=== PATIENT | male | born 1955 | race African-American/Black ===

== ENCOUNTER 2020-02-13 20:07 | Inpatient (IN) | payer MEDICARE, MEDICAID ==
--- NOTE | 2020-02-13 21:31 | ULT ---
GALLBLADDER ULTRASOUND: 02/13/20 HISTORY: Transaminitis. Elevated liver function tests. Right upper quadrant pain. Images of the gallbladder show numerous echogenic gallstones. Gallbladder wall is mildly thickened. T here is a positive Gordon's sign described. The liver is echogenic indicating fatty infiltration. The common bile duct is not imaged. No evidence of intrahepatic ductal dilatation. Pancreas is partially imaged. Pancreatic duct is mildly prominent. The right kidney shows numerous cystic lesions measuring up to 5 cm. IMPRESSION: 1. Cholelithiasis with mildly thickened gallbladder wall. Common duct is not identified; however , the pancreatic duct is mildly dilated and a common duct stone should be excluded. Positive Gordon's sign is described. 2. Fatty infiltration of the liver. 3. Numerous right renal cysts. POS: AGW
[2020-02-13] MEDS ORDERED: Lorazepam 1 MG TAB ONE (21:51)
[2020-02-13] MEDS ORDERED: Acetaminophen 325 MG TAB PO PRN (22:55)
[2020-02-13] MEDS ORDERED: NS 0.9% w/ 20 MEQ KCL 1,000 ML/1,000 ML BAG IV SCH (23:00)
[2020-02-13] MEDS ORDERED: cefTRIAXone\\ROCEPHIN 1 GM in Sodium Chloride 0.9% 100 ML IVPB SCH (23:00)
[2020-02-13] MEDS ORDERED: HYDROcodone/Acetaminophen 5/325 mg Tablet PO PRN (23:02)
[2020-02-13] MEDS ORDERED: Ondansetron PF 4 MG/2 ML Vial IVP PRN (23:03)
[2020-02-13] MEDS ORDERED: MEROPENEM 1 GM/50 ML 1 GM in Premix Bag 1 BAG IVPB SCH (23:15)
[2020-02-13] MEDS ORDERED: Lorazepam 2 MG/ML VIAL ONE (23:40)
--- NOTE | 2020-02-14 00:06 | PDOC.EVN ---
Event Note - Event Note Event Note: 64 YOM w.. mental retardation, type 2 DM, and HTN presented with cholelithiasis Type 2 DM gen sux evaluated him and recommended GI eval. consulted GI. pl call them in am.
[2020-02-14 00:15] LABS: #Lymphocytes 1.9 thou/uL (1.20-3.40); #Monocytes 0.5 thou/uL (0.11-0.59); #Neutrophils 5.3 thou/uL (1.40-6.50); %Basophils 0.5 % (0.0-1.0); %Eosinophils 0.4 % (0.0-10.0); %Lymphocytes 24.1 % (21.0-51.0); %Monocytes 6.9 % (0.0-10.0); %Neutrophils 68.1 % (42.0-75.0); Hemoglobin 12.5 g/dL (14.0-18.0); Mean Corpuscular HGB CONC 31.5 g/dL (32.0-36.0); Mean Corpuscular Hemoglobin 28.9 pg (27.0-31.0); Mean Corpuscular Volume 91.6 fL (78.0-98.0); Mean Platelet Volume 8.3 fL (7.4-10.4); Platelet Count 361 thou/uL (130-400); RBC Distribution Width 14.6 % (11.5-14.5); Red Blood Cell (RBC) Count 4.35 mill/uL (4.70-6.10); White Blood Cell (WBC) Count 7.8 thou/uL (4.8-10.8)
[2020-02-14 00:28] LABS: ALT (SGPT) 527 U/L (8-55); AST (SGOT) 504 U/L (5-34); Alkaline Phosphatase 229 U/L (40-110); Anion Gap 15 mmol/L (10-20); BUN (Urea Nitrogen) 6 mg/dL (8.4-25.7); Bilirubin, Total 1.5 mg/dL (0.2-1.2); Calc. Creatinine Clearance 0 mL/min (70-130); Calcium 9.4 mg/dL (7.8-10.44); Carbon Dioxide 26 mmol/L (23-31); Chloride 104 mmol/L (98-107); Estimated GFR-MDRD Greater than 90; Globulin 4.1 g/dL (2.4-3.5); Glucose 128 mg/dL (80-115); Potassium 3.5 mmol/L (3.5-5.1); Protein, Total 8.1 g/dL (5.8-8.1); Sodium 141 mmol/L (136-145)
[2020-02-14 00:40] VITALS: BMI 40.4
--- NOTE | 2020-02-14 01:04 | HP ---
CHIEF COMPLAINT: Abdominal discomfort and emesis. HISTORY OF PRESENT ILLNESS: A 64-year-old male, mentally retarded, lives with his mother, presented with one-day duration of headache and emesis x2 episodes. It happened last night and this morning. The patient was not complaining of abdominal pain, but expressed some discomfort. Information gathered from his mother. She does not know when he had the last bowel movement, but no noticeable diarrhea. The patient did not have any fever or cough. The patient has no previous history of abdominal surgery. He is transferred from [facility] after receiving IV fluids , 2 mg Ativan, and a gram of ceftriaxone. His LFTs were quite abnormal with AST of 767, ALT 637, and alkaline phosphatase 245. General Surgery has been consulted by the ER physician. It appeared that they recommended to consult trust operations assistant. The patient will be admitted for further workup. REVIEW OF SYSTEMS: Complete review of systems not obtained directly from the patient, but mother provided the above information. He did not have any fever. No productive cough. No headache, blurriness, or tingling or numbness in his extremities. He ambulates without any assistive devices. PAST MEDICAL HISTORY: Type 2 diabetes mellitus and hypertension. PAST SURGICAL HISTORY: Tooth extraction. HOME MEDICATIONS: 1. Atenolol 100 mg daily. 2. Lisinopril 20 mg daily. 3. Amlodipine 10 mg daily. 4. Hydrochlorothiazide. SOCIAL HISTORY: The patient lives with his mother. He chews cigars, but no alcohol use. FAMILY HISTORY: Significant for hypertension and diabetes in his mother. PHYSICAL EXAMINATION: VITAL SIGNS: He is afebrile. Normotensive. He is saturating above 90% in the room air. GENERAL: The patient is nontoxic looking. He is on the obese side. HEENT: Pupils are equal, round, and reactive to light. Anicteric. Mucous membranes moist. CARDIOVASCULAR: Regular rate and rhythm without murmurs, rubs, or gallops. LUNGS: Clear to auscultation bilaterally without wheezing, rales, or rhonchi. ABDOMEN: Soft, did not appreciate any rigidity or guarding. Bowel sounds positive. It is protuberant due to his body habitus. EXTREMITIES: Without pitting edema or rash. NEUROLOGICAL: No focal deficits appreciated. LABORATORY DATA: Again significant for lipase of 194, alkaline phosphatase 245 , AST 767, and ALT 637. IMAGING DATA: Ultrasound showed cholelithiasis, but common bile duct is not visualized. IMPRESSION AND PLAN: A 64-year-old male with a history of mental retardation, diabetes mellitus, and hypertension, presenting with, 1. Cholelithiasis. 2. Transaminitis elevation along with alkaline phosphatase. Acute pancreatitis probably related to cholelithiasis. 3. Type 2 diabetes mellitus. 4. Hypertension. 5. Obesity. General Surgery has been consulted by the ER physician. I placed a formal consult for trust operations assistant, as this is nonemergent, for tonight. Please make sure we call the GI in the morning. I am repeating the labs. Currently, continue with IV fluids, keep him n.p.o., pain control, as well as antiemetics. The patient is diabetic. I do not see any home hypoglycemic medications. So, for now, continue with normal saline and check his blood glucose. Will initiate the sliding scale insulin. Hypertension - continue with atenolol and lisinopril. DVT prophylaxis - scds Full code. Follow up with blood cultures and empiric antibiotic of Zosyn to cover for abdominal pathogens. Job ID: [id number] [facility]ENTER[facility]indy
[2020-02-14] MEDS: Piperacillin/Tazobactam 3.375 GM in Sodium Chloride 0.9% 100 ML IVPB SCH ×3 (01:22→17:22)
[2020-02-14] MEDS ORDERED: cloNIDine 0.1 MG TAB PO SCH (02:00)
[2020-02-14 04:57] LABS: Bacteria/HPF None Seen HPF (None Seen); Bilirubin 1+ (Negative); Blood, Urine Negative (Negative); Clarity Clear (Clear); Glucose, Urine (Dipstick) Normal (Negative); Leukocyte Negative Leu/uL (Negative); Nitrite Negative (Negative); Protein, Urine (Dipstick) 50 mg/dL (Neg-Trace); RBC/HPF 0-3 HPF (0-3); Squamous Epithelial 0-3 HPF (0-3); Urobilinogen 3 mg/dL (Less than 2); WBC/HPF 0-3 HPF (0-3)
[2020-02-14 05:08] LABS: Urine Culture Reflex No No
[2020-02-14] MEDS ORDERED: Dextrose 5% in Water 1,000 ML IV PRN ×2 (05:24→08:50)
[2020-02-14] MEDS ORDERED: HumaLOG 300 UNITS/3 ML VIAL SC PRN (05:24)
[2020-02-14] MEDS ORDERED: Dextrose 50% Abboject 50 ML SYRINGE SLOW IVP PRN ×2 (05:24→08:50)
[2020-02-14 06:32] LABS: PTT 29.2 SEC (22.9-36.1); Prothrombin Time 12.8 SEC (12.0-14.7)
[2020-02-14] MEDS ORDERED: Labetalol HCl 100 MG/20 ML VIAL SLOW IVP PRN (07:47)
[2020-02-14] MEDS ORDERED: hydrALAZINE 20 MG/ML VIAL SLOW IVP PRN ×2 (07:47→15:00)
[2020-02-14 07:55] LABS: ALT (SGPT) 475 U/L (8-55); AST (SGOT) 379 U/L (5-34); Albumin 3.9 g/dL (3.4-4.8); Alkaline Phosphatase 219 U/L (40-110); Anion Gap 15 mmol/L (10-20); BUN (Urea Nitrogen) 6 mg/dL (8.4-25.7); Bilirubin, Total 1.3 mg/dL (0.2-1.2); Calc. Creatinine Clearance 140 mL/min (70-130); Calcium 9.3 mg/dL (7.8-10.44); Carbon Dioxide 26 mmol/L (23-31); Chloride 104 mmol/L (98-107); Estimated GFR-MDRD Greater than 90; Globulin 4.1 g/dL (2.4-3.5); Glucose 108 mg/dL (80-115); Lipase 21 U/L (8-78); Potassium 3.6 mmol/L (3.5-5.1); Sodium 141 mmol/L (136-145)
[2020-02-14] MEDS ORDERED: Insulin Regular 300 UNITS/3 ML VIAL SC PRN (08:50)
[2020-02-14] MEDS: NS 0.9% w/ 20 MEQ KCL 1,000 ML/1,000 ML BAG IV SCH ×2 (09:04→17:53)
[2020-02-14] MEDS: Lisinopril 20 MG TAB PO SCH (09:16)
[2020-02-14] MEDS: Amlodipine 10 MG TAB PO SCH (09:16)
--- NOTE | 2020-02-14 09:41 | PDOC.HOSPP ---
- Subjective Encounter Date: 02/14/20 Encounter Time: 09:39 Subjective: Mr. Black was seen today in follow-up of abdominal pain and elevated LFT's. He notes a " little headache " . He denies any chest pain or shortness of breath. His mother is at bedside, and tells me he does not have any known heart disease. - Objective Vital Signs & Weight: Vital Signs (12 hours) Temp Pulse Resp BP BP Pulse Ox 02/14/20 09:17 95 180/112 H 02/14/20 09:16 95 180/112 H 02/14/20 07:27 98.0 F 95 18 180/112 H 92 L 02/14/20 04:51 97.7 F 100 16 163/97 H 93 L 02/14/20 02:16 162/89 H 02/14/20 01:52 94 L 02/14/20 00:40 98.6 F 100 18 180/118 H 94 L Weight Weight 258 lb Result Diagrams: 02/13/20 23:07 02/14/20 06:18 Hospitalist ROS - Medication Medications: Active Medications Generic Name Dose Route Start Last Admin Trade Name Freq PRN Reason Stop Dose Admin Amlodipine Besylate 10 mg 02/14/20 09:00 02/14/20 09:16 Norvasc PO Not Given DAILY ROBERTO Hydralazine HCl 10 mg 02/14/20 07:47 02/14/20 09:17 Apresoline SLOW IVP 10 mg Q4H PRN Administration SBP > 180 and HR < 70 Piperacillin Sod/Tazobactam 100 mls @ 200 mls/hr 02/14/20 00:15 02/14/20 09: 03 Sod 3.375 gm/ Sodium Chloride IVPB 100 mls Q8H ROBERTO Administration Potassium Chloride/Sodium Chloride 1,000 ml in 1,000 mls @ 125 mls/hr 08:45 02/14/20 09:04 Ns 0.9% W/ 20 Meq Kcl IV Not Given .Q8H ROBERTO Lisinopril 20 mg 02/14/20 09:00 02/14/20 09:16 Zestril PO Not Given DAILY ROBERTO Sodium Chloride 10 ml 02/14/20 09:00 02/14/20 09:05 Flush - Normal Saline IVF Not Given Q12HR ROBERTO - Exam General Appearance: NAD General - other findings: Blood pressure on re-check manually was 186/100 Eye: PERRL Heart: RRR, no murmur, no gallops, no rubs, normal peripheral pulses Respiratory: CTAB, no wheezes, no rales, no ronchi, normal chest expansion, no tachypnea, normal percussion Gastrointestinal: soft, non-tender, non-distended, normal bowel sounds, no palpable masses, no hepatomegaly, no splenomegaly Extremities: no cyanosis, no clubbing, no edema Hosp A/P (1) Acute acalculous cholecystitis Code(s): K81.0 - ACUTE CHOLECYSTITIS Status: Acute (2) Abdominal pain Code(s): R10.9 - UNSPECIFIED ABDOMINAL PAIN Status: Acute (3) Elevated liver function tests Code(s): R79.89 - OTHER SPECIFIED ABNORMAL FINDINGS OF BLOOD CHEMISTRY Status : Acute (4) Hypertension Code(s): I10 - ESSENTIAL (PRIMARY) HYPERTENSION Status: Chronic (5) Obesity, morbid, BMI 40.0-49.9 Code(s): E66.01 - MORBID (SEVERE) OBESITY DUE TO EXCESS CALORIES Status: Chronic (6) Diabetes mellitus type 2 in obese Code(s): E11.69 - TYPE 2 DIABETES MELLITUS WITH OTHER SPECIFIED COMPLICATION; E66.9 - OBESITY, UNSPECIFIED Status: Chronic - Plan * Abdominal pain and Nausea- likely due to acute acalculous cholecystitis, with mild pancreatitis * MRI has been ordered * Surgery and GI has been consulted * Continue empiric antibiotics * HTN- blood pressure is elevated- will add PRN medications including Clonidine with sips of water * DM- continue SSI
[2020-02-14] MEDS ORDERED: cloNIDine 0.1 MG TAB PO PRN (09:48)
--- NOTE | 2020-02-14 10:53 | CON ---
DATE OF CONSULTATION: 02/14/2020 CHIEF COMPLAINT: Abdominal pain, cholelithiasis. HISTORY OF PRESENT ILLNESS: The patient is a 64-year-old mentally-retarded black male. He lives with his mother in [place]. Yesterday, he developed abdominal pain with some episodes of vomiting. He was seen at the [facility]. Laboratory studies at that time revealed abnormal liver function tests. His bilirubin was initially elevated at 2.6, although when checked later in the evening, they dropped down to 1.5. His AST and ALT were both elevated in the 300 to 400 range and his alkaline phosphatase was elevated. A gallbladder ultrasound was subsequently obtained here at [facility] and this revealed cholelithiasis with possible dilated pancreatic duct and suspicion of possible common bile duct stone. The patient was admitted to the Hospitalist Service and I am seeing the patient in consult the following morning. PAST MEDICAL HISTORY: Significant for hypertension, type 2 diabetes mellitus as well as gout. PAST SURGICAL HISTORY: Dental extraction. MEDICATIONS: 1. Metformin. 2. Atenolol. 3. Lisinopril. 4. Amlodipine. 5. Hydrochlorothiazide. 6. Diazepam as needed. ALLERGIES: NO KNOWN DRUG ALLERGIES. PERSONAL AND SOCIAL HISTORY: The patient lives with his mother and she is present at bedside currently. He chews on cigar, but does not smoke. He does not work and never has worked. REVIEW OF SYSTEMS: Otherwise, unremarkable. FAMILY HISTORY: Noncontributory. PHYSICAL EXAMINATION: VITAL SIGNS: Temperature is 98.0, pulse 95, and blood pressure 180/112. GENERAL: He is a well-developed, well-nourished, obese black male. He is about 5 feet and 7 inches tall and weighs over 250 pounds. He is alert and pleasant. He is of limited mental capacity, but he is still verbally interactive. HEAD, EYES, EARS, NOSE, AND THROAT: Unremarkable. NECK: Supple. LUNGS: Clear to auscultation. CARDIAC: Regular rate and rhythm. ABDOMEN: Obese, but soft. Bowel sounds are present and normoactive. EXTREMITIES: Unremarkable. LABORATORY DATA: As mentioned, his bilirubin was elevated yesterday at 2.6, but has dropped down to 1.3 this morning. All of his liver function tests have dropped overnight. Additionally, his lipase was elevated at 194 yesterday and this has dropped down to 21 this morning. ASSESSMENT AND PLAN: The patient with cholelithiasis. I suspect that he did have a gallstone within the common bile duct, but this appears to have likely passed. At this point, I do not think he requires a preoperative endoscopic retrograde cholangiopancreatography. I would recommend a laparoscopic cholecystectomy with a cholangiogram. I have discussed this operation with the patient and his mother. She understands and agrees to proceed. Although, the patient tells me he does not want surgery. He is afraid that he will have pain. Although, I explained to him, with his limited mental capacity, I am not certain he understands entirely. Surgery has been scheduled for this afternoon. Job ID: [id number]
[2020-02-14] MEDS ORDERED: Metoprolol Tartrate 5 MG/5 ML VIAL ONE (11:20)
[2020-02-14] MEDS ORDERED: Lidocaine 1% PF 5 ML VIAL ONE (11:20)
[2020-02-14] MEDS ORDERED: Ondansetron PF 4 MG/2 ML Vial ONE (11:20)
[2020-02-14] MEDS ORDERED: Succinylcholine Chloride 20 MG/ML 10 ml SYRINGE FS ONE (11:20)
[2020-02-14] MEDS ORDERED: Metoclopramide HCl 10 MG/2 ML VIAL ONE (11:20)
[2020-02-14] MEDS ORDERED: PROPOFOL 200 MG/20 ML VIAL ONE (11:20)
[2020-02-14] MEDS ORDERED: Ketorolac Tromethamine 30 MG/ML VIAL ONE (11:20)
[2020-02-14] MEDS ORDERED: Esmolol 100 MG/10 ML VIAL ONE (11:20)
[2020-02-14] MEDS ORDERED: Rocuronium Bromide 10 MG/ML (10ML VIAL) ONE (11:20)
[2020-02-14] MEDS ORDERED: Bupivacaine 0.25% HCL 30 ML VIAL ONE (11:40)
[2020-02-14] MEDS ORDERED: Iothalamate Meglumine 60% 30 ML VIAL FS ONE (11:40)
[2020-02-14] MEDS ORDERED: EPINEPHrine 1 MG/ML AMP ONE (11:40)
[2020-02-14] MEDS ORDERED: Fentanyl 100 MCG/2 ML VIAL ONE (12:03)
[2020-02-14] MEDS ORDERED: Famotidine/PF 20 mg/2ml Vial ONE (12:04)
[2020-02-14] MEDS ORDERED: SUGAMMADEX SODIUM 500 MG/5 ML VIAL ONE (12:04)
[2020-02-14] MEDS ORDERED: hydrALAZINE 20 MG/ML VIAL ONE (13:04)
[2020-02-14] MEDS ORDERED: Ondansetron HCl/PF 4 MG/2 ML Vial IVP PRN (14:35)
[2020-02-14] MEDS ORDERED: Promethazine HCl 25 MG/ML VIAL SLOW IVP PRN (14:35)
[2020-02-14] MEDS ORDERED: Promethazine HCl 25 MG/ML VIAL IM PRN (14:35)
--- NOTE | 2020-02-14 16:30 | RAD ---
INTRAOPERATIVE CHOLANGIOGRAM; 02/14/20 HISTORY: Cholelithiasis. EXPOSURE: 9.43 mGy. 36 seconds. FINDINGS: Three intraprocedural fluoroscopic images demonstrate cannulation of the cystic duct. Contrast opacif ies a normal caliber intra and extrahepatic biliary system. No persistent filling defect. Contrast do es opacify the duodenum. IMPRESSION: No evidence of high grade common bile duct obstruction. POS: PPP
[2020-02-14] MEDS ORDERED: Morphine 2 MG/ML SYRINGE SLOW IVP PRN (18:13)
[2020-02-14] MEDS ORDERED: Morphine 4 MG/ML VIAL SLOW IVP PRN (18:13)
[2020-02-14] MEDS: Atenolol 50 MG TAB PO SCH (20:37)
--- NOTE | 2020-02-14 23:31 | OP ---
DATE OF PROCEDURE: 02/14/2020 PREOPERATIVE DIAGNOSES: Cholelithiasis, possible choledocholithiasis, cholecystitis. POSTOPERATIVE DIAGNOSES: [id number] cholecystitis, no evidence of choledocholithiasis. PROCEDURE PERFORMED: Laparoscopic cholecystectomy, (very difficult, requiring 2 hours), intraoperative cholangiogram, placement of intraabdominal drain. ANESTHESIA: General endotracheal. INDICATIONS FOR PROCEDURE: The patient is a 64-year-old morbidly obese black male. He presented to the hospital for evaluation of abdominal pain with nausea and vomiting. Ultrasound revealed evidence of cholelithiasis and cholecystitis. There was question regarding findings of choledocholithiasis and the patient had elevated liver function tests. He is therefore taken to the operating room at this time for laparoscopic cholecystectomy with cholangiogram. DESCRIPTION OF OPERATION: Informed consent was obtained from patient's mother. He is taken to the operating room, where general endotracheal anesthesia obtained with patient in the supine position. Abdomen was prepped with ChloraPrep and draped in sterile fashion. Local anesthetic was infiltrated using 0.25% Marcaine with epinephrine. A 5 mm right upper quadrant incision was created through which a Veress needle was passed into the peritoneal cavity. Pneumoperitoneum was established using carbon dioxide up to pressure of 15 mmHg. A 5 mm trocar port was passed through the same incision. Laparoscopic camera was passed through this port. Under direct vision, I placed 3 additional ports, using an 11 mm supraumbilical port and 2 additional 5 mm right upper quadrant ports. Attention was turned to the gallbladder. This was severely inflamed, it was encased with omentum. The omentum was bluntly stripped away in order to visualize the entire gallbladder. The gallbladder was too inflamed to be able to grasp. I therefore aspirated the contents with an aspiration needle. I was then able to grasp the gallbladder and retracted in cephalad direction. It was still very difficult to mobilize any of the gallbladder because of this severity of the induration and inflammation. I carefully began dissection at the apex of the gallbladder. The tissue in all areas was very thickened and inflamed. I was able to identify the cystic artery, lymph node and dissected this away, which revealed the underlying cystic artery. This was divided between clips leaving two on the side to remain within the abdomen. I attempted to dissect in order to find the cystic duct, but found this very dense and unable to identify anatomy appropriately. I therefore began to mobilize the left and right lateral aspects of the gallbladder and even the fundus of the gallbladder away from the liver in order to attempt to gain mobility. With time and persistent careful dissection, I was able to identify the cystic duct. All structures around this were densely inflamed. I was able to obtain a length of it eventually that I was able to proceed with a cholangiogram. Cholangiogram was obtained revealing no evidence of filling defect within the common bile duct. The contrast emptied easily into the duodenum. There was; however, an area that appeared to be somewhat narrowed or stenotic near the area of the apex of the gallbladder. This was clearly not obstructive as the common hepatic duct proximal to this was not dilated. I felt that it was likely that this narrowed area was secondary to the severity of inflammation from the gallbladder. The cholangiocath was removed. The duct was clipped, but due to the inflammation, it was not close to be inadequate. I therefore placed a PDS Endoloop on the cystic duct stump as well. I dissected the remainder of the gallbladder out of the gallbladder fossa of the liver, placed in a specimen retrieval sac, and removed it through the supraumbilical port. The fascia was closed with 0 Vicryl suture using a GraNee needle. The right upper quadrant was irrigated and all irrigant was aspirated. There was no evidence of any bleeding or bile leak. A 19-Kosovan round fluted drain was placed in the right upper quadrant, brought out through the inferior incision, where it was secured with a 3-0 nylon suture. The remaining ports and instruments were removed under direct vision. Pneumoperitoneum was carefully evacuated. 0.25% Marcaine with epinephrine was infiltrated each port site. Skin edges approximated with 4-0 Monocryl subcuticular suture and Dermabond. There were no complications. It was just a very difficult operation, but this had been performed without substantial blood loss. The patient tolerated the procedure well and was taken to recovery room in stable condition. Job ID: [id number]
[2020-02-15] MEDS: NS 0.9% w/ 20 MEQ KCL 1,000 ML/1,000 ML BAG IV SCH ×2 (00:14→08:51)
[2020-02-15] MEDS: Piperacillin/Tazobactam 3.375 GM in Sodium Chloride 0.9% 100 ML IVPB SCH ×2 (00:14→08:51)
[2020-02-15 06:23] LABS: ALT (SGPT) 329 U/L (8-55); AST (SGOT) 186 U/L (5-34); Albumin 3.7 g/dL (3.4-4.8); Alkaline Phosphatase 178 U/L (40-110); Anion Gap 16 mmol/L (10-20); BUN (Urea Nitrogen) 7 mg/dL (8.4-25.7); Bilirubin, Total 0.8 mg/dL (0.2-1.2); Calc. Creatinine Clearance 128 mL/min (70-130); Calcium 8.8 mg/dL (7.8-10.44); Carbon Dioxide 21 mmol/L (23-31); Chloride 110 mmol/L (98-107); Estimated GFR-MDRD Greater than 90; Globulin 3.8 g/dL (2.4-3.5); Glucose 109 mg/dL (80-115); Protein, Total 7.5 g/dL (5.8-8.1); Sodium 143 mmol/L (136-145)
[2020-02-15 07:05] LABS: Hemoglobin 12.6 g/dL (14.0-18.0); Lymphocytes 18 % (21-51); MDiff Complete? YES; Mean Corpuscular HGB CONC 32.6 g/dL (32.0-36.0); Mean Corpuscular Hemoglobin 28.9 pg (27.0-31.0); Mean Corpuscular Volume 88.7 fL (78.0-98.0); Mean Platelet Volume 8.5 fL (7.4-10.4); Monocytes 10 % (0-10); Neutrophil 71 % (42-75); Platelet Clumps SLIGHT; Platelet Count 306 thou/uL (130-400); Platelet Morphology Comment Appears Adequate; RBC Distribution Width 14.7 % (11.5-14.5); Red Blood Cell (RBC) Count 4.36 mill/uL (4.70-6.10); Vacuoles SLIGHT; White Blood Cell (WBC) Count 10.5 thou/uL (4.8-10.8)
[2020-02-15] MEDS: Amlodipine 10 MG TAB PO SCH (08:51)
[2020-02-15] MEDS: cloNIDine 0.1 MG TAB PO SCH ×2 (08:53→20:31)
[2020-02-15] MEDS: Enoxaparin Sodium 40 MG/0.4 ML SYRINGE SC SCH (08:54)
[2020-02-15] MEDS: Lisinopril 20 MG TAB PO SCH (08:55)
[2020-02-15] MEDS: Bisoprolol Fumarate/HCTZ 5 mg/6.25 mg Tablet PO SCH (09:30)
--- NOTE | 2020-02-15 11:42 | PDOC.HOSPP ---
- Subjective Encounter Date: 02/15/20 Encounter Time: 10:45 Subjective: pt up in bed wants to go to the bathroom. Assisted him with nursing to the bathroom. Pt ambulated well. - Objective Vital Signs & Weight: Vital Signs (12 hours) Temp Pulse Resp BP BP Pulse Ox 02/15/20 09:44 169/102 H 02/15/20 08:55 200/130 H 02/15/20 08:53 200/130 H 02/15/20 08:51 79 200/130 H 02/15/20 08:09 98.0 F 79 20 191/112 H 96 02/15/20 08:00 96 02/15/20 05:22 98.1 F 81 18 169/112 H 93 L 02/15/20 00:26 98.1 F 89 17 170/107 H 94 L Weight Weight 258 lb I&O: 02/14/20 02/15/20 02/16/20 06:59 06:59 06:59 Intake Total 1200 Output Total 225 1000 Balance -225 200 Result Diagrams: 02/15/20 06:35 02/15/20 05:23 Additional Labs: Accuchecks 02/15/20 02/15/20 02/14/20 06:09 00:39 20:32 POC Glucose 109 112 H 110 02/14/20 16:40 POC Glucose 142 H Hospitalist ROS - Review of Systems Cardiovascular: denies: chest pain, palpitations, orthopnea, paroxysmal noc. dyspnea, edema, light headedness, other Gastrointestinal: denies: nausea, vomiting, abdominal pain, diarrhea, constipation, melena, hematochezia, other - Medication Medications: Active Medications Generic Name Dose Route Start Last Admin Trade Name Freq PRN Reason Stop Dose Admin Acetaminophen 650 mg 02/13/20 22:55 02/14/20 20:37 Tylenol PO 650 mg Q4H PRN Administration Headache/Fever/Mild Pain (1-3) Amlodipine Besylate 10 mg 02/14/20 09:00 02/15/20 08:51 Norvasc PO 10 mg DAILY ROBERTO Administration Atenolol 100 mg 02/14/20 21:00 02/14/20 20:37 Tenormin PO 100 mg HS ROBERTO Administration Bisoprolol Fumarate/HCTZ 1 tab 02/15/20 09:00 05/02/20 09:30 Ziac 5-6.25 PO 1 tab DAILY ROBERTO Administration Clonidine 0.1 mg 02/15/20 09:00 02/15/20 08:53 Catapres PO 0.1 mg BID ROBERTO Administration Enoxaparin Sodium 40 mg 02/15/20 09:00 02/15/20 08:54 Lovenox SC 40 mg 0900 ROBERTO Administration Hydralazine HCl 10 mg 02/14/20 07:47 02/14/20 09:17 Apresoline SLOW IVP 10 mg Q4H PRN Administration SBP > 180 and HR < 70 Piperacillin Sod/Tazobactam 100 mls @ 200 mls/hr 02/14/20 00:15 02/15/20 08: 51 Sod 3.375 gm/ Sodium Chloride IVPB 100 mls Q8H ROBERTO Administration Potassium Chloride/Sodium Chloride 1,000 ml in 1,000 mls @ 125 mls/hr 08:45 02/15/20 08:51 Ns 0.9% W/ 20 Meq Kcl IV Not Given .Q8H ROBERTO Lisinopril 20 mg 02/14/20 09:00 02/15/20 08:55 Zestril PO 20 mg DAILY ROBERTO Administration Sodium Chloride 10 ml 02/14/20 09:00 02/15/20 08:54 Flush - Normal Saline IVF 10 ml Q12HR ROBERTO Administration - Exam Neck: negative: supple, symmetric, no JVD, no thyromegaly, no lymphadenopathy, no carotid bruit, JVD Heart: negative: RRR, no murmur, no gallops, no rubs, normal peripheral pulses, irregular, diminshed peripheral pulses, murmur present, II/IV, III/IV Respiratory: negative: CTAB, no wheezes, no rales, no ronchi, normal chest expansion, no tachypnea, normal percussion, rales, rhonchi, tachypneic, wheezes Gastrointestinal - other findings: eduardo drain, laproscopic incision noted Extremities: negative: no cyanosis, no clubbing, no edema, 1+ LE edema, 2+ LE edema, clubbing Hosp A/P (1) Abdominal pain Code(s): R10.9 - UNSPECIFIED ABDOMINAL PAIN Status: Acute (2) Acute acalculous cholecystitis Code(s): K81.0 - ACUTE CHOLECYSTITIS Status: Acute (3) Elevated liver function tests Code(s): R79.89 - OTHER SPECIFIED ABNORMAL FINDINGS OF BLOOD CHEMISTRY Status : Acute (4) Diabetes mellitus type 2 in obese Code(s): E11.69 - TYPE 2 DIABETES MELLITUS WITH OTHER SPECIFIED COMPLICATION; E66.9 - OBESITY, UNSPECIFIED Status: Chronic (5) Hypertension Code(s): I10 - ESSENTIAL (PRIMARY) HYPERTENSION Status: Chronic (6) Obesity, morbid, BMI 40.0-49.9 Code(s): E66.01 - MORBID (SEVERE) OBESITY DUE TO EXCESS CALORIES Status: Chronic - Plan s/p laproscopic cholecystectomy. He is doing well. Up in chair. Eating well. pt has his eduardo drain. prn pain meds. continue to trend lfts, no choledocholithiasis noted in OR report. will continue abx since gallbladder was inflamed.
[2020-02-15] MEDS ORDERED: traMADol HCl 50 MG TAB PO PRN (14:36)
[2020-02-15] MEDS ORDERED: Ibuprofen 600 MG TAB PO PRN (14:37)
--- NOTE | 2020-02-15 14:59 | PRG ---
DATE OF SERVICE: 02/15/2020 SUBJECTIVE: Mr. Black is doing well after laparoscopic cholecystectomy performed by Dr. Galvez yesterday. He has a drain which is serosanguineous output. His liver function test and his CBC are normal this morning. OBJECTIVE: VITAL SIGNS: He is afebrile with normal vital signs. Although, hypertensive and this is markedly improved. LUNGS: Clear to auscultation. CARDIAC: Regular rate and rhythm without murmur or gallop. ABDOMEN: Soft, nontender. Surgical wounds look good. He is tolerating his diet. We will have nursing remove his SHABBIR drain today. I have written prescription for Augmentin 500 b.i.d. and discontinue his Zosyn. We would recommend him taking Tylenol 1000 mg p.o. q.i.d., Ultram 50 mg p.o. q.4 hours p.r.n. pain and/or Motrin 600 mg p.o. q.i.d. p.r.n. pain. Follow up with Dr. Galvez in 2 to 3 weeks. Diet and activity as tolerated. No lifting restrictions. He could shower and bathe anytime in the shower or bath. There are no activity or eating restrictions. Job ID: [id number]
[2020-02-15] MEDS: Acetaminophen 500 MG TAB PO PRN (17:53)
[2020-02-15] MEDS: Amoxicillin/Potassium Clav 500 MG TAB PO SCH (20:31)
[2020-02-15] MEDS: Atenolol 50 MG TAB PO SCH (20:31)
[2020-02-16] MEDS: Acetaminophen 500 MG TAB PO PRN ×2 (00:36→14:41)
[2020-02-16] MEDS: Amlodipine 10 MG TAB PO SCH (08:44)
[2020-02-16] MEDS: Lisinopril 20 MG TAB PO SCH (08:44)
[2020-02-16] MEDS: cloNIDine 0.1 MG TAB PO SCH (08:44)
[2020-02-16] MEDS: Bisoprolol Fumarate/HCTZ 5 mg/6.25 mg Tablet PO SCH (08:44)
[2020-02-16] MEDS: Amoxicillin/Potassium Clav 500 MG TAB PO SCH (08:45)
[2020-02-16] MEDS: Enoxaparin Sodium 40 MG/0.4 ML SYRINGE SC SCH (08:45)
[2020-02-16] MEDS ORDERED: Polyethylene Glycol 3350 17 GM Packet PO SCH (09:00)
--- NOTE | 2020-02-16 11:39 | PRG ---
DATE OF SERVICE: 02/16/2020 SUBJECTIVE: Felice Black is doing well. He is tolerating his diet. OBJECTIVE: VITAL SIGNS: He is 97.7 degrees, heart rate 72, blood pressure 150/93. LUNGS: Clear to auscultation. CARDIAC: Regular rate and rhythm without murmur or gallop. ABDOMEN: Soft, nontender. Surgical wound looked good. LABORATORY DATA: No laboratories today. PLAN: He is tolerated his diet. He is having bowel function. The patient can be discharged home from my standpoint. He can follow up with Dr. Galvez in the next 2 to 3 weeks. Diet and activity as tolerated. At this point, we will see him as needed in this hospitalization. Please call if necessary. The patient can be discharged home from my standpoint. Job ID: [id number]
[2020-02-16 17:57] VITALS: BP 158/94; TEMP 97.8
--- NOTE | 2020-02-17 01:46 | DIS ---
DATE OF ADMISSION: 02/13/2020 DATE OF DISCHARGE: 02/16/2020 DISCHARGE DIAGNOSES: 1. Abdominal pain. 2. Acute acalculous cholecystitis. 3. Elevated liver function. 4. Diabetes. 5. Hypertension. 6. Obesity. HOSPITAL COURSE: The patient is a very pleasant 64-year-old male, who comes into the hospital with complaints of abdominal discomfort and emesis. At this time, he was noted to have elevated LFT, General Surgery was consulted. At this time, he underwent a laparoscopic cholecystectomy and per the OR records, it appeared to be very difficult requiring 2 hours; intraoperative cholangiogram was also done. The patient initially had a SHABBIR drain, which was then removed by the surgeon. Given his inflammation of the gallbladder, he was initially put on broad-spectrum IV antibiotics, and then was changed to p.o. per surgeon. He will be discharged home. He will follow up with his Primary and surgeon. The patient has been able to ambulate. His pain has been controlled. HOME MEDICATIONS: 1. Augmentin 500 mg 1 p.o. b.i.d. per surgeon. 2. Tylenol Extra Strength as needed. 3. MiraLAX 17 g daily. 4. Tramadol 50 mg q.4 hours p.r.n. per surgeon. 5. Norvasc 5 mg daily. 6. Benazepril 20 mg twice a day. 7. Metformin 500 mg b.i.d. 8. Allopurinol 300 mg daily. 9. Clonidine 0.1 b.i.d. 10. Bisoprolol/hydrochlorothiazide 1 p.o. daily. 11. Valium 5 mg p.o. daily. PHYSICAL EXAMINATION: VITAL SIGNS: Temperature 97.6, 77, 20, 150/93, 95% on room air. GENERAL: He is awake, alert, and oriented x3. Does not appear in any distress. CV: S1, S2 present. No murmurs, rubs, or gallops. ABDOMEN: Soft and nontender. Bowel sounds are present x2. Surgical markings are noted. Again, he will be discharged home. He will follow up with Surgery and greater than 32 minutes were spent discharging the patient. Job ID: [id number]
--- NOTE | 2020-02-18 05:04 | PQF ---
DOROTHY SPARKS [place] [id number] CLINICAL DOCUMENTATION CLARIFICATION FORM: POST DISCHARGE Addendum to original discharge summary date: ____ Late entry note date: __ DATE: 02/18/20 ATTN:[place] Please exercise your independent, professional judgment in responding to the clarification form. Clinical indicators are provided on the bottom of this form for your review Can you please further clarify if Pancreatitis is ruled in or ruled out? Pancreatitis [ ] Ruled in diagnosis [ ] Continue to treat [ ] Resolved [ ] Ruled out diagnosis [ ] Cannot rule out diagnosis [ ] Other diagnosis please specify [ x] Unable to determine If ruled in please specify acuity of pancreatitis: [ ] Acute [ ] Chronic [ ] Acute on chronic In addition, please specify: Present on Admission (POA): [ ] Yes [ ] No [ x ] Unable to determine For continuity of documentation, please document condition throughout progress notes and discharge summary. Thank You. CLINICAL INDICATORS - SIGNS / SYMPTOMS / LABS H and P pg.1- Abdominal discomfort and emesis H and P pg.2- transaminitis elevation along with alkaline phospate. Acute Pancreatitis probably related to cholelithiasis Laboratory- Lipase 21 Hospitalist PN 02/13 pg.4- Abdominal pain and nausea likely due to acute acalculous cholecystitis with mild pancreatitis PN 5/- His liver function test and his CBC are normal DS pg.1- elevated liver function Vital signs 02/13: Lipt=746.2 Lhtau=074 Respi=18 GW=221/75 RISK FACTORS HTN- H and P pg.1 DM- H and P pg.1 64 years old- H and P pg.1 Obesity- H and P pg.2 Acute cholecystitis DS pg 1 TREATMENTS Abdomen Ultrasound 02/[address] Galvez 02/13 IV Fluids- MAR Laparoscopic cholecystectomy- OP report pg.1 Zosyn 3.375gm- IV- MAR Amoxicillin 500mg PO_ MAR (This form is maintained as a part of the permanent medical record) 2014 [facility] [employer]. All Rights Reserved [email or web address]
== END 2020-02-16 17:50 | disposition home or self-care (01) | DRG 418 ==
LOC: ERS 20:07 → T4-B 23:13
PROVIDERS: ADMIT Internal Medicine; ATTEND Internal Medicine
PROC: 0FT44ZZ Resection of Gallbladder, Percutaneous Endoscopic Approach (ICD-10-PCS; principal; 2020-02-14)
PROC: BF10YZZ Fluoroscopy of Bile Ducts using Other Contrast (ICD-10-PCS; 2020-02-14)
DX: K81.0 Acute cholecystitis (principal); Z68.41 Body mass index [BMI] 40.0-44.9, adult; K81.1 Chronic cholecystitis; M10.9 Gout, unspecified; E78.00 Pure hypercholesterolemia, unspecified; E11.9 Type 2 diabetes mellitus without complications; F79 Unspecified intellectual disabilities; E66.01 Morbid (severe) obesity due to excess calories; Z79.899 Other long term (current) drug therapy; Z79.84 Long term (current) use of oral hypoglycemic drugs
CPT/HCPCS: 36416; 47532; 76705; 80053; 81001; 83690; 83735; 85025; 85610; 85730; 88304; 96374; J0171; J0360; J1650; J1885; J2001; J2060; J2185; J2405; J2543; J2704; J2765; J3010; J3480; J3490; S0020; S0028

== ENCOUNTER 2020-08-10 07:49 | Outpatient (CLI) | payer MEDICARE, MEDICAID ==
--- NOTE | 2020-08-10 15:21 | RAD ---
EXAM: Two views chest PROVIDED CLINICAL HISTORY: Nausea and vomiting COMPARISON: 02/13/2020 FINDINGS: Cardiac silhouette is at the upper limits of normal with cardiac fat pad seen at the left lung base. Pulmonary vasculature is within normal limits. Lungs are clear. Chest is overall stable compared to prior study. IMPRESSION: No acute cardiopulmonary process.
[2020-08-10 17:55] LABS: Bacteria/HPF None Seen HPF (None Seen); Bilirubin Negative (Negative); Blood, Urine Trace (Negative); Clarity Clear (Clear); Glucose, Urine (Dipstick) Normal (Negative); Ketone, Urine Trace mg/dL (Negative); Leukocyte Negative Leu/uL (Negative); Nitrite Negative (Negative); Protein, Urine (Dipstick) 100 mg/dL (Neg-Trace); RBC/HPF 0-3 HPF (0-3); Specific Gravity, Urine 1.018 (1.002-1.036); Squamous Epithelial 0-3 HPF (0-3); Urobilinogen Normal mg/dL (Less than 2); WBC/HPF 0-3 HPF (0-3); pH, Urine 5.5 (5.0-9.0)
[2020-08-10 17:58] LABS: Hemoglobin 14.8 g/dL (14.0-18.0); Mean Corpuscular HGB CONC 32.6 g/dL (32.0-36.0); Mean Corpuscular Hemoglobin 28.8 pg (27.0-31.0); Mean Corpuscular Volume 88.3 fL (78.0-98.0); Mean Platelet Volume 9.3 fL (7.4-10.4); Platelet Count 303 thou/uL (130-400); RBC Distribution Width 14.7 % (11.5-14.5); Red Blood Cell (RBC) Count 5.16 mill/uL (4.70-6.10); White Blood Cell (WBC) Count 12.5 thou/uL (4.8-10.8)
[2020-08-10 18:10] LABS: INR-International Normal Ratio 0.9; PTT 29.3 sec (22.9-36.1); Prothrombin Time 12.4 sec (12.0-14.7)
[2020-08-10 18:26] LABS: Anion Gap 18 mmol/L (10-20); BUN (Urea Nitrogen) 14 mg/dL (8.4-25.7); Calc. Creatinine Clearance 0 mL/min (70-130); Calcium 10.3 mg/dL (7.8-10.44); Carbon Dioxide 23 mmol/L (23-31); Chloride 101 mmol/L (98-107); Estimated GFR-MDRD Greater than 90; Glucose 117 mg/dL (80-115); Potassium 4.1 mmol/L (3.5-5.1); Sodium 138 mmol/L (136-145)
[2020-08-11 11:06] LABS: SARS-CoV-2 MS2 Positive; SARS-CoV-2 N Gene Negative; SARS-CoV-2 S Gene Negative; SARS-CoV-2 by NAA Not Detected (NotDetected); SARS-CoV-2 orf1ab Negative
== END 2020-08-10 07:50 | disposition home or self-care (01) ==
LOC: LABBT 07:49
PROVIDERS: ATTEND Urology
DX: Z01.818 Encounter for other preprocedural examination (principal); Z20.828 Contact with and (suspected) exposure to other viral communicable diseases; N39.46 Mixed incontinence; R97.20 Elevated prostate specific antigen [PSA]; E11.9 Type 2 diabetes mellitus without complications; Z74.09 Other reduced mobility; Z68.41 Body mass index [BMI] 40.0-44.9, adult
CPT/HCPCS: 71046; 80048; 81001; 85027; 85610; 85730; 87086; U0003; 87635; 93005; 93010

== ENCOUNTER 2020-08-13 06:34 | Day surgery (SDC) | payer MEDICARE, MEDICAID ==
[2020-08-12 10:28] VITALS: BMI 40.1
[2020-08-13] MEDS ORDERED: Midazolam HCl 2 mg/2 ml Vial ONE (06:57)
[2020-08-13] MEDS ORDERED: Fentanyl 100 MCG/2 ML VIAL ONE (06:57)
[2020-08-13] MEDS ORDERED: cefTRIAXone\\ROCEPHIN 2 GM VIAL ONE (07:07)
[2020-08-13] MEDS ORDERED: Sodium Chloride 0.9% 100 ML ONE (07:07)
[2020-08-13] MEDS ORDERED: Ketamine 50 MG/ML (10ML VIAL) ONE (07:31)
--- NOTE | 2020-08-13 09:58 | OP ---
DATE OF PROCEDURE: 08/13/2020 SERVICE: Urology. PREOPERATIVE DIAGNOSIS: Elevated prostate-specific antigen. POSTOPERATIVE DIAGNOSES: Elevated prostate-specific antigen and benign prostatic hypertrophy. PROCEDURE PERFORMED: Transrectal ultrasound-guided prostate biopsy x16 cores. INDICATIONS FOR PROCEDURE: Mr. Black is a 64-year-old black male with mental handicaps, who presented to me originally with an elevated PSA. On PSA testing, his PSA returned at 32, which was significantly concerning. We discussed prostate biopsy, but due to his mental handicaps, he was not able to do this in the office as he is extremely fearful and not really understanding of what his procedure will be. As such, his mother has made a decision to have his biopsies done in the operating room with sedation. Risks and benefits were entirely discussed and they have agreed to proceed forward. DESCRIPTION OF PROCEDURE: After identification of armband and verification of consent, the patient was brought back to the operating room, where he underwent general anesthesia with an LMA. He was then left in the left lateral decubitus position. He then had an ultrasound probe introduced through the anal verge into the distal rectum where ultrasonography of the prostate was performed. Measurements were taken of the prostate, which demonstrated a total volume of 87.5 mL. The length of the prostate was 4.8 cm, width 6.7 cm, and height 5 cm. The biopsy needle gun was then used to take biopsies in the sextant fashion for a total of 12 cores taken in the routine fashion. Since the prostate was very large and the patient was already asleep, we decided to take anterior biopsies, so an additional 4 biopsies were taken anteriorly at the right base, right apex, left base, and left apex along the anterior of the prostate for a total of 16 cores taken. These were all then sent off for routine pathologic evaluation. The patient was then returned back to his normal positioning, awakened, and taken back to PACU for recovery in stable condition. COMPLICATIONS: None. ESTIMATED BLOOD LOSS: Minimal. RETAINED TUBES AND DRAINS: None. RETAINED TUBES AND DRAINS: None. SPECIMENS: TRUS biopsies x16 cores. DISPOSITION: The patient will be discharged home and follow up with me in approximately 2 weeks for a postop check as well as to go over his biopsy results. Job ID: [id number]
[2020-08-13] MEDS ORDERED: Ondansetron ODT 4 MG TAB ONE (10:00)
[2020-08-13] MEDS ORDERED: Promethazine HCl 25 MG/ML VIAL ONE (10:20)
[2020-08-13] MEDS ORDERED: Promethazine 25 MG TAB ONE (10:28)
[2020-08-13] MEDS ORDERED: PROPOFOL 200 MG/20 ML VIAL ONE (10:30)
[2020-08-13] MEDS ORDERED: Ondansetron PF 4 MG/2 ML Vial ONE (10:30)
== END 2020-08-13 11:00 | disposition home or self-care (01) ==
LOC: SDC 06:34
PROVIDERS: ATTEND Urology
PROC: 0VT08ZZ Resection of Prostate, Via Natural or Artificial Opening Endoscopic (ICD-10-PCS; principal; 2020-08-13)
DX: N40.1 Benign prostatic hyperplasia with lower urinary tract symptoms (principal); R35.0 Frequency of micturition; N39.46 Mixed incontinence; E11.9 Type 2 diabetes mellitus without complications; I10 Essential (primary) hypertension; E78.5 Hyperlipidemia, unspecified; M10.9 Gout, unspecified; F79 Unspecified intellectual disabilities; Z74.09 Other reduced mobility; Z79.82 Long term (current) use of aspirin; Z79.84 Long term (current) use of oral hypoglycemic drugs; Z79.899 Other long term (current) drug therapy
CPT/HCPCS: 88305; J0696; J2250; J2405; J2550; J2704; J3010; J3490; Q0162; Q0169

== ENCOUNTER 2021-07-08 20:56 | Inpatient (IN) | payer MEDICARE, MEDICAID ==
[2021-07-09] MEDS ORDERED: Senokot S 8.6-50 MG TAB PO PRN (00:01)
[2021-07-09] MEDS ORDERED: Guaifenesin DM 100-10/5 ML UDCUP PO PRN (00:01)
[2021-07-09] MEDS ORDERED: Ondansetron PF 4 MG/2 ML Vial IVP PRN (00:01)
[2021-07-09] MEDS ORDERED: Benzonatate 100 MG CAP PO PRN (00:09)
[2021-07-09] MEDS ORDERED: Albuterol Sulfate 1.25 MG/3 ML NEB NEB PRN (00:12)
[2021-07-09] MEDS ORDERED: Pharmacy to Dose REMDESIVIR IVPB PRN (00:12)
[2021-07-09] MEDS ORDERED: Indomethacin 25 mg Capsule PO PRN (00:16)
[2021-07-09] MEDS ORDERED: Dextrose 50% Abboject 50 ML SYRINGE SLOW IVP PRN (00:18)
[2021-07-09] MEDS ORDERED: Dextrose 5% in Water 1,000 ML IV PRN (00:18)
[2021-07-09] MEDS ORDERED: Enoxaparin Sodium 40 MG/0.4 ML SYRINGE SC SCH ×2 (00:30→09:00)
[2021-07-09] MEDS ORDERED: Dexamethasone 10 MG/ML VIAL SLOW IVP SCH (00:45)
[2021-07-09] MEDS ORDERED: Vancomycin HCl 500 MG in Sodium Chloride 0.9% 100 ML IVPB SCH (01:00)
[2021-07-09 01:10] LABS: Troponin I 0.035 ng/mL (< 0.028)
[2021-07-09] MEDS: hydrALAZINE 20 MG/ML VIAL SLOW IVP PRN ×2 (05:17→12:10)
[2021-07-09] MEDS ORDERED: Insulin Regular 300 UNITS/3 ML VIAL ONE (08:41)
[2021-07-09] MEDS: cloNIDine 0.1 MG TAB PO SCH ×2 (08:57→21:39)
[2021-07-09] MEDS: Allopurinol 300 MG TAB PO SCH (08:57)
[2021-07-09] MEDS: Cefepime 1 GM in Sodium Chloride 0.9% 100 ML IVPB SCH ×2 (09:00→21:39)
[2021-07-09] MEDS: Famotidine 20 MG TAB PO SCH ×2 (09:00→21:40)
[2021-07-09] MEDS ORDERED: REMDESIVIR 200 MG in Sodium Chloride 0.9% 250 ML 210 ML IV SCH (09:00)
[2021-07-09] MEDS ORDERED: Spironolactone 100 MG TAB PO SCH (09:00)
[2021-07-09] MEDS: Ascorbic Acid 500 mg Chewable Tablet PO SCH (09:01)
[2021-07-09] MEDS: Dexamethasone 10 MG/ML VIAL SLOW IVP SCH ×2 (09:02→21:39)
[2021-07-09] MEDS: Zinc Sulfate 220 MG CAP PO SCH (09:11)
[2021-07-09] MEDS: Cholecalciferol (Vitamin D3) 400 UNITS TAB PO SCH (09:16)
[2021-07-09 10:51] LABS: Hemoglobin A1c 7.3 % (4.0-6.0)
[2021-07-09 11:18] LABS: ALT (SGPT) 53 U/L (8-55); AST (SGOT) 93 U/L (5-34); Albumin 3.8 g/dL (3.4-4.8); Alkaline Phosphatase 78 U/L (40-110); Anion Gap 26 mmol/L (10-20); BUN (Urea Nitrogen) 16 mg/dL (8.4-25.7); Bilirubin, Total 0.5 mg/dL (0.2-1.2); Calc. Creatinine Clearance 116 mL/min (70-130); Calcium 8.5 mg/dL (7.8-10.44); Carbon Dioxide 16 mmol/L (23-31); Cardiac Risk 3.8 (Less than 4.5); Chloride 106 mmol/L (98-107); Cholesterol 114 mg/dl (< 200 Desired); Glucose 205 mg/dL (80-115); HDL Cholesterol 30 mg/dL (>60 Neg Risk); LDL Cholesterol, Calculated 57 mg/dL; Potassium 4.7 mmol/L (3.5-5.1); Protein, Total 8.8 g/dL (5.8-8.1); Sodium 143 mmol/L (136-145); Triglycerides 134 mg/dL (Less than 150)
[2021-07-09 11:54] LABS: Thyroid Stimulating Hormone 0.2707 uIU/mL (0.35-4.94)
[2021-07-09 12:34] LABS: Ferritin 7179.73 ng/mL (22-322)
[2021-07-09 12:44] LABS: Band 21 % (5-11); Hemoglobin 15.2 g/dL (14.0-18.0); Lymphocytes 10 % (21-51); MDiff Complete? YES; Mean Corpuscular HGB CONC 30.6 g/dL (32.0-36.0); Mean Corpuscular Hemoglobin 28.3 pg (27.0-31.0); Mean Corpuscular Volume 92.5 fL (78.0-98.0); Mean Platelet Volume 8.9 fL (7.4-10.4); Monocytes 2 % (0-10); Neutrophil 67 % (42-75); Platelet Count 305 thou/uL (130-400); Platelet Morphology Comment Appears Adequate; RBC Distribution Width 15.2 % (11.5-14.5); RBC Morphology Normal; Red Blood Cell (RBC) Count 5.36 mill/uL (4.70-6.10)
[2021-07-09] MEDS: HumaLOG 300 UNITS/3 ML VIAL SC PRN ×2 (14:01→16:47)
[2021-07-09] MEDS ORDERED: Heparin 1,000 UNITS/ML VIAL ONE (14:26)
[2021-07-09] MEDS ORDERED: NIFEdipine XL 60 MG TAB PO SCH ×2 (15:15→15:20)
[2021-07-09] MEDS: Bisoprolol Fumarate/HCTZ 5 mg/6.25 mg Tablet PO SCH (15:59)
[2021-07-09] MEDS ORDERED: guaiFENesin ER 600 MG TAB ONE (19:27)
[2021-07-09] MEDS ORDERED: HumaLOG 300 UNITS/3 ML VIAL ONE (19:28)
[2021-07-09] MEDS ORDERED: Non-Formulary Item 1 EACH (Benazepril Hcl [Benazepril Hcl] 20 MG Tablet) PO SCH (21:00)
[2021-07-09] MEDS: Lisinopril 20 MG TAB PO SCH (21:40)
[2021-07-09] MEDS: Enoxaparin Sodium 40 MG/0.4 ML SYRINGE SC SCH (21:42)
[2021-07-09] MEDS ORDERED: VANCOMYCIN 1.75 GM/350 ML BAG 1.75 GM in Premix Bag 1 BAG IVPB SCH (22:00)
[2021-07-10] MEDS: Dexamethasone 10 MG/ML VIAL SLOW IVP SCH ×4 (01:43→23:13)
[2021-07-10] MEDS: Cefepime 1 GM in Sodium Chloride 0.9% 100 ML IVPB SCH ×2 (05:26→08:20)
[2021-07-10] MEDS: HumaLOG 300 UNITS/3 ML VIAL SC PRN ×4 (05:27→23:14)
[2021-07-10 05:29] LABS: Anion Gap 24 mmol/L (10-20); BUN (Urea Nitrogen) 29 mg/dL (8.4-25.7); Calc. Creatinine Clearance 89 mL/min (70-130); Calcium 8.3 mg/dL (7.8-10.44); Carbon Dioxide 22 mmol/L (23-31); Chloride 106 mmol/L (98-107); Glucose 217 mg/dL (80-115); Potassium 4.5 mmol/L (3.5-5.1); Sodium 147 mmol/L (136-145)
[2021-07-10 08:05] LABS: Anion Gap 24 mmol/L (10-20); BUN (Urea Nitrogen) 34 mg/dL (8.4-25.7); Calc. Creatinine Clearance 74 mL/min (70-130); Carbon Dioxide 18 mmol/L (23-31); Chloride 109 mmol/L (98-107); Potassium 5.2 mmol/L (3.5-5.1); Sodium 146 mmol/L (136-145)
[2021-07-10 08:06] LABS: Calcium 8.2 mg/dL (7.8-10.44); Glucose 210 mg/dL (80-115)
[2021-07-10] MEDS: cloNIDine 0.1 MG TAB PO SCH ×3 (08:20→23:25)
[2021-07-10] MEDS: NIFEdipine XL 60 MG TAB PO SCH (08:20)
[2021-07-10] MEDS: Allopurinol 300 MG TAB PO SCH (08:20)
[2021-07-10] MEDS: Cholecalciferol (Vitamin D3) 400 UNITS TAB PO SCH (08:20)
[2021-07-10] MEDS: Enoxaparin Sodium 40 MG/0.4 ML SYRINGE SC SCH ×2 (08:21→23:18)
[2021-07-10] MEDS: Ascorbic Acid 500 mg Chewable Tablet PO SCH (08:21)
[2021-07-10] MEDS: Famotidine 20 MG TAB PO SCH ×3 (08:21→23:25)
[2021-07-10] MEDS: Zinc Sulfate 220 MG CAP PO SCH (08:21)
[2021-07-10] MEDS: Lisinopril 20 MG TAB PO SCH (08:21)
[2021-07-10] MEDS: REMDESIVIR 100 MG in Sodium Chloride 0.9% 250 ML 230 ML IV SCH (08:22)
[2021-07-10] MEDS: Bisoprolol Fumarate/HCTZ 5 mg/6.25 mg Tablet PO SCH (08:22)
[2021-07-10 08:42] LABS: Hemoglobin 12.2 g/dL (14.0-18.0); Mean Corpuscular HGB CONC 30.8 g/dL (32.0-36.0); Mean Corpuscular Hemoglobin 27.9 pg (27.0-31.0); Mean Corpuscular Volume 90.8 fL (78.0-98.0); Mean Platelet Volume 9.5 fL (7.4-10.4); Platelet Count 349 thou/uL (130-400); RBC Distribution Width 15.2 % (11.5-14.5); Red Blood Cell (RBC) Count 4.37 mill/uL (4.70-6.10); White Blood Cell (WBC) Count 16.3 thou/uL (4.8-10.8)
[2021-07-10 08:46] LABS: Band 20 % (5-11); Lymphocytes 9 % (21-51); Metamyelocyte 1 % (0-0); Monocytes 3 % (0-10); Neutrophil 67 % (42-75)
[2021-07-10 08:47] LABS: MDiff Complete? YES
[2021-07-10] MEDS ORDERED: cefTRIAXone\\ROCEPHIN 500 MG in Sodium Chloride 0.9% 100 ML IVPB SCH (09:00)
[2021-07-10] MEDS ORDERED: Amlodipine 5 MG TAB PO SCH (09:00)
[2021-07-10] MEDS ORDERED: Amlodipine 10 MG TAB PO SCH (09:00)
[2021-07-10] MEDS ORDERED: Furosemide 40 MG/4 ML VIAL SLOW IVP SCH ×2 (09:00)
[2021-07-10] MEDS: cefTRIAXone\\ROCEPHIN 500 MG in Sodium Chloride 0.9% 100 ML IVPB SCH (10:58)
[2021-07-10] MEDS: Azithromycin 250 MG TAB PO SCH (10:59)
[2021-07-10] MEDS ORDERED: BARICITINIB 2 MG TAB PO SCH (12:15)
[2021-07-10] MEDS: Lorazepam 2 MG/ML VIAL SLOW IVP PRN (21:26)
[2021-07-10] MEDS: Melatonin 3 MG TAB PO PRN (23:14)
[2021-07-11 01:58] LABS: Bacteria/HPF None Seen HPF (None Seen); Bilirubin Negative (Negative); Blood, Urine 1+ (Negative); Clarity Clear (Clear); Glucose, Urine (Dipstick) Normal (Negative); Ketone, Urine Trace mg/dL (Negative); Leukocyte Negative Leu/uL (Negative); Nitrite Negative (Negative); Protein, Urine (Dipstick) 100 mg/dL (Neg-Trace); Specific Gravity, Urine 1.022 (1.002-1.036); Squamous Epithelial 0-3 HPF (0-3); Urobilinogen Normal mg/dL (Less than 2); WBC/HPF 0-3 HPF (0-3); pH, Urine 5.5 (5.0-9.0)
[2021-07-11] MEDS: Lorazepam 2 MG/ML VIAL SLOW IVP PRN ×2 (03:24→23:08)
[2021-07-11 05:43] LABS: Anion Gap 20 mmol/L (10-20); BUN (Urea Nitrogen) 43 mg/dL (8.4-25.7); Calc. Creatinine Clearance 89 mL/min (70-130); Calcium 8.4 mg/dL (7.8-10.44); Carbon Dioxide 18 mmol/L (23-31); Chloride 111 mmol/L (98-107); Glucose 224 mg/dL (80-115); Potassium 4.4 mmol/L (3.5-5.1); Sodium 145 mmol/L (136-145)
[2021-07-11] MEDS: HumaLOG 300 UNITS/3 ML VIAL SC PRN ×4 (06:23→20:59)
[2021-07-11] MEDS: BARICITINIB 2 MG TAB PO SCH (09:53)
[2021-07-11] MEDS: Allopurinol 300 MG TAB PO SCH (09:53)
[2021-07-11] MEDS: Famotidine 20 MG TAB PO SCH ×2 (09:54→20:59)
[2021-07-11] MEDS: cloNIDine 0.1 MG TAB PO SCH ×2 (09:54→20:58)
[2021-07-11] MEDS: Ascorbic Acid 500 mg Chewable Tablet PO SCH (09:54)
[2021-07-11] MEDS: NIFEdipine XL 60 MG TAB PO SCH (09:54)
[2021-07-11] MEDS: Zinc Sulfate 220 MG CAP PO SCH (09:54)
[2021-07-11] MEDS: Azithromycin 250 MG TAB PO SCH (09:54)
[2021-07-11] MEDS: Enoxaparin Sodium 40 MG/0.4 ML SYRINGE SC SCH ×2 (09:55→20:58)
[2021-07-11] MEDS: Cholecalciferol (Vitamin D3) 400 UNITS TAB PO SCH (09:55)
[2021-07-11] MEDS: REMDESIVIR 100 MG in Sodium Chloride 0.9% 250 ML 230 ML IV SCH (09:56)
[2021-07-11] MEDS: Dexamethasone 10 MG/ML VIAL SLOW IVP SCH ×2 (09:58→20:58)
[2021-07-11] MEDS: cefTRIAXone\\ROCEPHIN 500 MG in Sodium Chloride 0.9% 100 ML IVPB SCH (09:58)
[2021-07-11] MEDS: Bisoprolol Fumarate/HCTZ 5 mg/6.25 mg Tablet PO SCH (09:59)
[2021-07-11] MEDS: Furosemide 20 MG/2 ML VIAL SLOW IVP SCH (10:05)
[2021-07-11 11:29] LABS: Actual Bicarbonate (HCO3a) 24.3 mEq/L (22-28); Base Excess (BEa) 0.1 mEq/L (-2.0 to +3.0); CO2 Tension 38.4 mmHg (35.0-45.0); Calcium, Ionized (arterial) 1.14 mmol/L (1.12-1.30); Carboxyhemoglobin (COHb) 0.5 gm% (0.0-3.0); Hemoglobin (Hb) 12.8 g/dL (14.0-18.0); Potassium - ABG Lab 3.79 mmol/L (3.70-5.30); pH, Arterial 7.42 (7.35-7.45)
[2021-07-11 11:45] LABS: O2 Tension (PaO2), arterial 52.5 mmHg (> 80.0); Puncture Site LRA
[2021-07-11 14:31] LABS: #Basophils 0.1 thou/uL (0.0-0.2); #Lymphocytes 1.6 thou/uL (1.20-3.40); #Monocytes 0.4 thou/uL (0.11-0.59); #Neutrophils 13.3 thou/uL (1.40-6.50); %Basophils 0.4 % (0.0-1.0); %Eosinophils 0.3 % (0.0-10.0); %Lymphocytes 10.2 % (21.0-51.0); %Monocytes 2.4 % (0.0-10.0); %Neutrophils 86.8 % (42.0-75.0); Hemoglobin 13.2 g/dL (14.0-18.0); Mean Corpuscular HGB CONC 31.1 g/dL (32.0-36.0); Mean Corpuscular Hemoglobin 28.5 pg (27.0-31.0); Mean Corpuscular Volume 91.6 fL (78.0-98.0); Mean Platelet Volume 8.1 fL (7.4-10.4); Platelet Count 472 thou/uL (130-400); RBC Distribution Width 15.3 % (11.5-14.5); Red Blood Cell (RBC) Count 4.62 mill/uL (4.70-6.10); White Blood Cell (WBC) Count 15.3 thou/uL (4.8-10.8)
[2021-07-11] MEDS: Melatonin 3 MG TAB PO PRN (20:59)
[2021-07-12] MEDS: Lorazepam 2 MG/ML VIAL SLOW IVP PRN ×2 (05:29→15:33)
[2021-07-12] MEDS: HumaLOG 300 UNITS/3 ML VIAL SC PRN ×4 (06:22→21:51)
[2021-07-12] MEDS: cefTRIAXone\\ROCEPHIN 500 MG in Sodium Chloride 0.9% 100 ML IVPB SCH (09:23)
[2021-07-12] MEDS: Zinc Sulfate 220 MG CAP PO SCH (09:24)
[2021-07-12] MEDS: BARICITINIB 2 MG TAB PO SCH (09:24)
[2021-07-12] MEDS: Allopurinol 300 MG TAB PO SCH (09:24)
[2021-07-12] MEDS: cloNIDine 0.1 MG TAB PO SCH ×2 (09:24→21:48)
[2021-07-12] MEDS: Cholecalciferol (Vitamin D3) 400 UNITS TAB PO SCH (09:24)
[2021-07-12] MEDS: Bisoprolol Fumarate/HCTZ 5 mg/6.25 mg Tablet PO SCH (09:24)
[2021-07-12] MEDS: Famotidine 20 MG TAB PO SCH ×2 (09:24→21:48)
[2021-07-12] MEDS: REMDESIVIR 100 MG in Sodium Chloride 0.9% 250 ML 230 ML IV SCH (09:25)
[2021-07-12] MEDS: Dexamethasone 10 MG/ML VIAL SLOW IVP SCH ×2 (09:25→21:48)
[2021-07-12] MEDS: Enoxaparin Sodium 40 MG/0.4 ML SYRINGE SC SCH ×2 (09:25→21:48)
[2021-07-12] MEDS: Furosemide 20 MG/2 ML VIAL SLOW IVP SCH (09:25)
[2021-07-12] MEDS: NIFEdipine XL 60 MG TAB PO SCH (10:06)
[2021-07-12] MEDS: Ascorbic Acid 500 mg Chewable Tablet PO SCH (10:06)
[2021-07-12 14:10] LABS: Anion Gap 17 mmol/L (10-20); BUN (Urea Nitrogen) 42 mg/dL (8.4-25.7); Calc. Creatinine Clearance 97 mL/min (70-130); Carbon Dioxide 26 mmol/L (23-31); Chloride 111 mmol/L (98-107); Glucose 285 mg/dL (80-115); Potassium 3.9 mmol/L (3.5-5.1); Sodium 150 mmol/L (136-145)
[2021-07-12 14:20] LABS: Band 17 % (5-11); Hemoglobin 12.9 g/dL (14.0-18.0); Hypochromia SLIGHT = 6-15 cells (100X) (0-5/hpf); Lymphocytes 13 % (21-51); MDiff Complete? YES; Mean Corpuscular HGB CONC 30.3 g/dL (32.0-36.0); Mean Corpuscular Hemoglobin 27.6 pg (27.0-31.0); Mean Corpuscular Volume 90.9 fL (78.0-98.0); Mean Platelet Volume 9.1 fL (7.4-10.4); Metamyelocyte 1 % (0-0); Monocytes 4 % (0-10); Myelocyte 1 % (0-0); Neutrophil 63 % (42-75); Nucleated RBC 2 % (0); Platelet Count 450 thou/uL (130-400); Platelet Morphology Comment Appears Increased; Polychromasia SLIGHT = 2-3 cells (100X) (0-2/hpf); RBC Distribution Width 15.3 % (11.5-14.5); Reactive Lymphocytes 1 % (0-10); Red Blood Cell (RBC) Count 4.68 mill/uL (4.70-6.10); Target Cells SLIGHT = 2-5 cells (100X) (0-1/hpf)
[2021-07-12] MEDS: Azithromycin 500 MG in Sodium Chloride 0.9% 250 ML 250 ML IVPB SCH (15:32)
[2021-07-12] MEDS: Melatonin 3 MG TAB PO PRN (21:51)
[2021-07-13] MEDS: Lorazepam 2 MG/ML VIAL SLOW IVP PRN ×2 (00:25→14:31)
[2021-07-13] MEDS: HumaLOG 300 UNITS/3 ML VIAL SC PRN ×4 (05:21→22:03)
[2021-07-13] MEDS: NIFEdipine XL 60 MG TAB PO SCH (08:46)
[2021-07-13] MEDS: cloNIDine 0.1 MG TAB PO SCH ×2 (08:46→21:31)
[2021-07-13] MEDS: Cholecalciferol (Vitamin D3) 400 UNITS TAB PO SCH (08:46)
[2021-07-13] MEDS: BARICITINIB 2 MG TAB PO SCH (08:46)
[2021-07-13] MEDS: Zinc Sulfate 220 MG CAP PO SCH (08:46)
[2021-07-13] MEDS: Famotidine 20 MG TAB PO SCH ×2 (08:46→21:32)
[2021-07-13] MEDS: Ascorbic Acid 500 mg Chewable Tablet PO SCH (08:46)
[2021-07-13] MEDS: Enoxaparin Sodium 40 MG/0.4 ML SYRINGE SC SCH ×2 (08:47→21:32)
[2021-07-13] MEDS: Allopurinol 300 MG TAB PO SCH (08:47)
[2021-07-13] MEDS: Bisoprolol Fumarate/HCTZ 5 mg/6.25 mg Tablet PO SCH (08:47)
[2021-07-13] MEDS: Dexamethasone 10 MG/ML VIAL SLOW IVP SCH ×2 (08:47→21:32)
[2021-07-13] MEDS: Furosemide 20 MG/2 ML VIAL SLOW IVP SCH (08:47)
[2021-07-13] MEDS: cefTRIAXone\\ROCEPHIN 500 MG in Sodium Chloride 0.9% 100 ML IVPB SCH (08:48)
[2021-07-13] MEDS ORDERED: NIFEdipine XL 60 MG TAB PO SCH (09:08)
[2021-07-13] MEDS ORDERED: NIFEdipine XL 30 MG TAB PO SCH (09:15)
[2021-07-13] MEDS: Azithromycin 500 MG in Sodium Chloride 0.9% 250 ML 250 ML IVPB SCH (09:41)
[2021-07-13] MEDS: REMDESIVIR 100 MG in Sodium Chloride 0.9% 250 ML 230 ML IV SCH (10:51)
[2021-07-13] MEDS ORDERED: ALPRAZolam 0.5 MG TAB PO SCH (23:30)
[2021-07-13] MEDS: Melatonin 3 MG TAB PO PRN (23:58)
[2021-07-14 00:21] LABS: Anion Gap 20 mmol/L (10-20); BUN (Urea Nitrogen) 36 mg/dL (8.4-25.7); Calc. Creatinine Clearance 91 mL/min (70-130); Calcium 9.7 mg/dL (7.8-10.44); Carbon Dioxide 26 mmol/L (23-31); Chloride 113 mmol/L (98-107); Glucose 262 mg/dL (80-115); Magnesium 2.7 mg/dL (1.6-2.6); Potassium 4.5 mmol/L (3.5-5.1); Sodium 154 mmol/L (136-145)
[2021-07-14] MEDS: Cholecalciferol (Vitamin D3) 400 UNITS TAB PO SCH (08:19)
[2021-07-14] MEDS: Enoxaparin Sodium 40 MG/0.4 ML SYRINGE SC SCH ×2 (08:23→20:45)
[2021-07-14] MEDS: Bisoprolol Fumarate/HCTZ 5 mg/6.25 mg Tablet PO SCH (08:23)
[2021-07-14] MEDS: Ascorbic Acid 500 mg Chewable Tablet PO SCH (08:24)
[2021-07-14] MEDS: Allopurinol 300 MG TAB PO SCH (08:24)
[2021-07-14] MEDS: BARICITINIB 2 MG TAB PO SCH (08:24)
[2021-07-14] MEDS: Famotidine 20 MG TAB PO SCH ×2 (08:24→20:46)
[2021-07-14] MEDS: cloNIDine 0.1 MG TAB PO SCH ×2 (08:24→21:11)
[2021-07-14] MEDS: NIFEdipine XL 90 MG TAB PO SCH (08:24)
[2021-07-14] MEDS: Zinc Sulfate 220 MG CAP PO SCH (08:25)
[2021-07-14] MEDS ORDERED: Dextrose 5% in Water 1,000 ML IV SCH (09:45)
[2021-07-14] MEDS: HumaLOG 300 UNITS/3 ML VIAL SC PRN ×3 (11:50→21:00)
[2021-07-14 12:32] LABS: Anion Gap 19 mmol/L (10-20); BUN (Urea Nitrogen) 32 mg/dL (8.4-25.7); Calc. Creatinine Clearance 94 mL/min (70-130); Calcium 8.7 mg/dL (7.8-10.44); Carbon Dioxide 24 mmol/L (23-31); Chloride 111 mmol/L (98-107); Glucose 284 mg/dL (80-115); Sodium 149 mmol/L (136-145)
[2021-07-14] MEDS: Furosemide 20 MG/2 ML VIAL SLOW IVP SCH (17:45)
[2021-07-14] MEDS: cefTRIAXone\\ROCEPHIN 500 MG in Sodium Chloride 0.9% 100 ML IVPB SCH (18:11)
[2021-07-14] MEDS: Dexamethasone 10 MG/ML VIAL SLOW IVP SCH ×2 (18:11→20:46)
[2021-07-14] MEDS: Dextrose 5% in Water 1,000 ML IV SCH (18:52)
[2021-07-14] MEDS: Azithromycin 500 MG in Sodium Chloride 0.9% 250 ML 250 ML IVPB SCH (19:18)
[2021-07-15] MEDS: Lorazepam 2 MG/ML VIAL SLOW IVP PRN (00:18)
[2021-07-15] MEDS: HumaLOG 300 UNITS/3 ML VIAL SC PRN ×4 (06:20→20:30)
[2021-07-15] MEDS: Ascorbic Acid 500 mg Chewable Tablet PO SCH (09:24)
[2021-07-15] MEDS: Allopurinol 300 MG TAB PO SCH (09:24)
[2021-07-15] MEDS: Zinc Sulfate 220 MG CAP PO SCH (09:24)
[2021-07-15] MEDS: cloNIDine 0.1 MG TAB PO SCH ×2 (09:24→20:31)
[2021-07-15] MEDS: BARICITINIB 2 MG TAB PO SCH (09:24)
[2021-07-15] MEDS: NIFEdipine XL 90 MG TAB PO SCH (09:25)
[2021-07-15] MEDS: Cholecalciferol (Vitamin D3) 400 UNITS TAB PO SCH (09:25)
[2021-07-15] MEDS: Famotidine 20 MG TAB PO SCH ×2 (09:25→20:31)
[2021-07-15] MEDS: Enoxaparin Sodium 40 MG/0.4 ML SYRINGE SC SCH ×2 (09:25→20:31)
[2021-07-15] MEDS: Bisoprolol Fumarate/HCTZ 5 mg/6.25 mg Tablet PO SCH (09:25)
[2021-07-15] MEDS: Dexamethasone 10 MG/ML VIAL SLOW IVP SCH ×2 (09:25→20:31)
[2021-07-15] MEDS: Dextrose 5% in Water 1,000 ML IV SCH (13:12)
[2021-07-15 17:57] LABS: Hemoglobin 12.6 g/dL (14.0-18.0); Mean Corpuscular HGB CONC 30.8 g/dL (32.0-36.0); Mean Corpuscular Hemoglobin 28.1 pg (27.0-31.0); Mean Corpuscular Volume 91.5 fL (78.0-98.0); Mean Platelet Volume 8.8 fL (7.4-10.4); Platelet Count 416 thou/uL (130-400); RBC Distribution Width 15.4 % (11.5-14.5); Red Blood Cell (RBC) Count 4.48 mill/uL (4.70-6.10); White Blood Cell (WBC) Count 19.3 thou/uL (4.8-10.8)
[2021-07-15 18:16] LABS: ALT (SGPT) 49 U/L (8-55); AST (SGOT) 36 U/L (5-34); Albumin 3.2 g/dL (3.4-4.8); Alkaline Phosphatase 119 U/L (40-110); Bilirubin, Direct 0.2 mg/dL (0.1-0.3); Bilirubin, Total 0.4 mg/dL (0.2-1.2); Protein, Total 7.8 g/dL (5.8-8.1)
[2021-07-15 18:25] LABS: Anion Gap 14 mmol/L (10-20); BUN (Urea Nitrogen) 31 mg/dL (8.4-25.7); Calc. Creatinine Clearance 103 mL/min (70-130); Calcium 8.8 mg/dL (7.8-10.44); Carbon Dioxide 29 mmol/L (23-31); Chloride 106 mmol/L (98-107); Glucose 368 mg/dL (80-115); Potassium 4.2 mmol/L (3.5-5.1); Sodium 145 mmol/L (136-145)
[2021-07-15 18:34] LABS: Anisocytosis SLIGHT = 6-15 cells (100X) (0-5/hpf); Band 5 % (5-11); Lymphocytes 4 % (21-51); MDiff Complete? YES; Metamyelocyte 2 % (0-0); Monocytes 2 % (0-10); Neutrophil 87 % (42-75); Nucleated RBC 2 % (0); Platelet Morphology Comment Appears Increased; Polychromasia SLIGHT = 2-3 cells (100X) (0-2/hpf)
[2021-07-16] MEDS: HumaLOG 300 UNITS/3 ML VIAL SC PRN ×4 (06:47→20:19)
[2021-07-16] MEDS: BARICITINIB 2 MG TAB PO SCH (09:57)
[2021-07-16] MEDS: NIFEdipine XL 90 MG TAB PO SCH (09:58)
[2021-07-16] MEDS: Ascorbic Acid 500 mg Chewable Tablet PO SCH (09:58)
[2021-07-16] MEDS: Bisoprolol Fumarate/HCTZ 5 mg/6.25 mg Tablet PO SCH (09:58)
[2021-07-16] MEDS: Lantus 1000 UNITS/10 ML VIAL SC SCH (09:59)
[2021-07-16] MEDS: Enoxaparin Sodium 40 MG/0.4 ML SYRINGE SC SCH ×2 (09:59→20:12)
[2021-07-16] MEDS: cloNIDine 0.1 MG TAB PO SCH ×2 (09:59→20:13)
[2021-07-16] MEDS: Cholecalciferol (Vitamin D3) 400 UNITS TAB PO SCH (09:59)
[2021-07-16] MEDS: Famotidine 20 MG TAB PO SCH ×2 (09:59→20:13)
[2021-07-16] MEDS: Zinc Sulfate 220 MG CAP PO SCH (09:59)
[2021-07-16] MEDS: Dexamethasone 10 MG/ML VIAL SLOW IVP SCH (09:59)
[2021-07-16] MEDS: Allopurinol 300 MG TAB PO SCH (09:59)
[2021-07-16 15:11] LABS: Anion Gap 21 mmol/L (10-20); BUN (Urea Nitrogen) 32 mg/dL (8.4-25.7); Calc. Creatinine Clearance 99 mL/min (70-130); Calcium 8.9 mg/dL (7.8-10.44); Carbon Dioxide 18 mmol/L (23-31); Chloride 109 mmol/L (98-107); Glucose 342 mg/dL (80-115); Potassium 5.2 mmol/L (3.5-5.1); Sodium 143 mmol/L (136-145)
[2021-07-16 15:52] LABS: Hemoglobin 12.9 g/dL (14.0-18.0); Mean Corpuscular HGB CONC 31.5 g/dL (32.0-36.0); Mean Corpuscular Hemoglobin 28.6 pg (27.0-31.0); Mean Corpuscular Volume 90.8 fL (78.0-98.0); Mean Platelet Volume 9.2 fL (7.4-10.4); Platelet Count 446 thou/uL (130-400); RBC Distribution Width 15.5 % (11.5-14.5)
[2021-07-16 16:14] LABS: Anisocytosis SLIGHT = 6-15 cells (100X) (0-5/hpf); Band 7 % (5-11); Lymphocytes 5 % (21-51); MDiff Complete? YES; Metamyelocyte 3 % (0-0); Monocytes 2 % (0-10); Neutrophil 83 % (42-75); Platelet Morphology Comment Appears Increased; Polychromasia SLIGHT = 2-3 cells (100X) (0-2/hpf); Vacuoles SLIGHT
[2021-07-16 19:00] LABS: Anisocytosis SLIGHT = 6-15 cells (100X) (0-5/hpf); Hemoglobin 12.5 g/dL (14.0-18.0); Lymphocytes 8 % (21-51); MDiff Complete? YES; Mean Corpuscular Volume 90.6 fL (78.0-98.0); Mean Platelet Volume 8.9 fL (7.4-10.4); Monocytes 3 % (0-10); Neutrophil 89 % (42-75); Platelet Count 421 thou/uL (130-400); Platelet Morphology Comment Appears Increased; Polychromasia SLIGHT = 2-3 cells (100X) (0-2/hpf); RBC Distribution Width 15.3 % (11.5-14.5); Red Blood Cell (RBC) Count 4.31 mill/uL (4.70-6.10); White Blood Cell (WBC) Count 18.9 thou/uL (4.8-10.8)
[2021-07-17] MEDS: HumaLOG 300 UNITS/3 ML VIAL SC PRN ×4 (06:18→20:38)
[2021-07-17] MEDS: Allopurinol 300 MG TAB PO SCH (08:32)
[2021-07-17] MEDS: Famotidine 20 MG TAB PO SCH ×2 (08:32→20:40)
[2021-07-17] MEDS: NIFEdipine XL 90 MG TAB PO SCH (08:32)
[2021-07-17] MEDS: Ascorbic Acid 500 mg Chewable Tablet PO SCH (08:33)
[2021-07-17] MEDS: BARICITINIB 2 MG TAB PO SCH (08:33)
[2021-07-17] MEDS: Bisoprolol Fumarate/HCTZ 5 mg/6.25 mg Tablet PO SCH (08:33)
[2021-07-17] MEDS: Cholecalciferol (Vitamin D3) 400 UNITS TAB PO SCH (08:33)
[2021-07-17] MEDS: Zinc Sulfate 220 MG CAP PO SCH (08:33)
[2021-07-17] MEDS: cloNIDine 0.1 MG TAB PO SCH ×2 (08:33→20:39)
[2021-07-17] MEDS: Enoxaparin Sodium 40 MG/0.4 ML SYRINGE SC SCH ×2 (08:34→20:42)
[2021-07-17] MEDS: Lantus 1000 UNITS/10 ML VIAL SC SCH (08:34)
[2021-07-17] MEDS ORDERED: Dexamethasone 4 mg/ml Vial SLOW IVP SCH (09:00)
[2021-07-17] MEDS ORDERED: Dexamethasone 10 MG/ML VIAL SLOW IVP SCH (09:00)
[2021-07-17] MEDS: Dexamethasone 4 mg/ml Vial SLOW IVP SCH (09:35)
[2021-07-17 09:37] LABS: Anion Gap 17 mmol/L (10-20); BUN (Urea Nitrogen) 30 mg/dL (8.4-25.7); Calc. Creatinine Clearance 102 mL/min (70-130); Calcium 9.3 mg/dL (7.8-10.44); Carbon Dioxide 29 mmol/L (23-31); Chloride 103 mmol/L (98-107); Glucose 214 mg/dL (80-115); Potassium 4.5 mmol/L (3.5-5.1); Sodium 144 mmol/L (136-145)
[2021-07-17 09:42] LABS: Hemoglobin 13.5 g/dL (14.0-18.0); Mean Corpuscular HGB CONC 30.7 g/dL (32.0-36.0); Mean Corpuscular Hemoglobin 27.8 pg (27.0-31.0); Mean Corpuscular Volume 90.6 fL (78.0-98.0); Mean Platelet Volume 9.1 fL (7.4-10.4); Platelet Count 455 thou/uL (130-400); RBC Distribution Width 15.4 % (11.5-14.5); Red Blood Cell (RBC) Count 4.86 mill/uL (4.70-6.10); White Blood Cell (WBC) Count 18.7 thou/uL (4.8-10.8)
[2021-07-17 12:23] LABS: Anisocytosis SLIGHT = 6-15 cells (100X) (0-5/hpf); Band 2 % (5-11); Large Platelets SLIGHT; Lymphocytes 16 % (21-51); MDiff Complete? YES; Monocytes 7 % (0-10); Neutrophil 75 % (42-75); Platelet Morphology Comment Appears Increased; Polychromasia SLIGHT = 2-3 cells (100X) (0-2/hpf)
[2021-07-18] MEDS: Melatonin 3 MG TAB PO PRN ×2 (00:35→20:25)
[2021-07-18 05:44] LABS: ALT (SGPT) 34 U/L (8-55); AST (SGOT) 35 U/L (5-34); Albumin 3.3 g/dL (3.4-4.8); Alkaline Phosphatase 116 U/L (40-110); Bilirubin, Direct 0.2 mg/dL (0.1-0.3); Bilirubin, Total 0.5 mg/dL (0.2-1.2); Protein, Total 8.1 g/dL (5.8-8.1)
[2021-07-18] MEDS: BARICITINIB 2 MG TAB PO SCH ×2 (07:51→11:17)
[2021-07-18] MEDS: Bisoprolol Fumarate/HCTZ 5 mg/6.25 mg Tablet PO SCH ×2 (07:51→11:18)
[2021-07-18] MEDS: Cholecalciferol (Vitamin D3) 400 UNITS TAB PO SCH ×2 (07:52→11:18)
[2021-07-18] MEDS: cloNIDine 0.1 MG TAB PO SCH ×3 (07:52→20:26)
[2021-07-18] MEDS: NIFEdipine XL 90 MG TAB PO SCH ×2 (07:52→11:18)
[2021-07-18] MEDS: Allopurinol 300 MG TAB PO SCH ×2 (07:52→11:16)
[2021-07-18] MEDS: Ascorbic Acid 500 mg Chewable Tablet PO SCH ×2 (07:52→11:17)
[2021-07-18] MEDS: Enoxaparin Sodium 40 MG/0.4 ML SYRINGE SC SCH ×3 (07:53→20:26)
[2021-07-18] MEDS: Zinc Sulfate 220 MG CAP PO SCH ×2 (07:54→11:19)
[2021-07-18] MEDS: Famotidine 20 MG TAB PO SCH ×3 (07:55→20:26)
[2021-07-18] MEDS: Lantus 1000 UNITS/10 ML VIAL SC SCH (07:55)
[2021-07-18] MEDS: Dexamethasone 4 mg/ml Vial SLOW IVP SCH (08:00)
[2021-07-18] MEDS: HumaLOG 300 UNITS/3 ML VIAL SC PRN ×3 (16:46→20:27)
[2021-07-19] MEDS: Enoxaparin Sodium 40 MG/0.4 ML SYRINGE SC SCH ×3 (08:58→20:08)
[2021-07-19] MEDS: BARICITINIB 2 MG TAB PO SCH ×2 (08:58→11:06)
[2021-07-19] MEDS: Famotidine 20 MG TAB PO SCH ×2 (08:59→11:07)
[2021-07-19] MEDS: NIFEdipine XL 90 MG TAB PO SCH ×2 (08:59→11:07)
[2021-07-19] MEDS: Cholecalciferol (Vitamin D3) 400 UNITS TAB PO SCH ×2 (09:00→11:06)
[2021-07-19] MEDS: Zinc Sulfate 220 MG CAP PO SCH ×2 (09:00→11:07)
[2021-07-19] MEDS: Ascorbic Acid 500 mg Chewable Tablet PO SCH ×2 (09:00→11:05)
[2021-07-19] MEDS: Bisoprolol Fumarate/HCTZ 5 mg/6.25 mg Tablet PO SCH ×2 (09:00→11:06)
[2021-07-19] MEDS: cloNIDine 0.1 MG TAB PO SCH ×3 (09:00→20:08)
[2021-07-19] MEDS: Allopurinol 300 MG TAB PO SCH ×2 (09:00→11:05)
[2021-07-19] MEDS: Lantus 1000 UNITS/10 ML VIAL SC SCH ×2 (09:01→11:07)
[2021-07-19 15:32] LABS: SARS-CoV-2 NAA Rapid Test DETECTED (NotDetected)
[2021-07-19] MEDS: Dextrose 5 % And 0.9 % NaCl 1,000 ML IV SCH (16:55)
[2021-07-19] MEDS: Melatonin 3 MG TAB PO PRN (20:08)
[2021-07-19] MEDS: HumaLOG 300 UNITS/3 ML VIAL SC PRN (20:09)
[2021-07-20] MEDS: cloNIDine 0.1 MG TAB PO SCH ×2 (10:52→20:21)
[2021-07-20] MEDS: BARICITINIB 2 MG TAB PO SCH ×2 (10:52→11:54)
[2021-07-20] MEDS: NIFEdipine XL 90 MG TAB PO SCH (10:53)
[2021-07-20] MEDS: Ascorbic Acid 500 mg Chewable Tablet PO SCH ×2 (10:53→11:54)
[2021-07-20] MEDS: Zinc Sulfate 220 MG CAP PO SCH ×2 (10:54→11:55)
[2021-07-20] MEDS: Pantoprazole 40 MG VIAL IVP SCH ×2 (10:54→11:54)
[2021-07-20] MEDS: Allopurinol 300 MG TAB PO SCH ×2 (10:57→11:54)
[2021-07-20] MEDS: Enoxaparin Sodium 40 MG/0.4 ML SYRINGE SC SCH ×3 (10:58→20:20)
[2021-07-20] MEDS: Lantus 1000 UNITS/10 ML VIAL SC SCH (11:07)
[2021-07-20] MEDS: Dexamethasone 4 mg/ml Vial SLOW IVP SCH ×2 (11:10→11:54)
[2021-07-20] MEDS: Dextrose 5 % And 0.9 % NaCl 1,000 ML IV SCH (11:35)
[2021-07-20] MEDS: Cholecalciferol (Vitamin D3) 400 UNITS TAB PO SCH (11:52)
[2021-07-20] MEDS: Bisoprolol Fumarate/HCTZ 5 mg/6.25 mg Tablet PO SCH (11:52)
[2021-07-20] MEDS: HumaLOG 300 UNITS/3 ML VIAL SC PRN (16:33)
[2021-07-20] MEDS: Melatonin 3 MG TAB PO SCH ×2 (20:21→21:42)
[2021-07-21] MEDS: HumaLOG 300 UNITS/3 ML VIAL SC PRN ×3 (06:35→22:38)
[2021-07-21] MEDS: Enoxaparin Sodium 40 MG/0.4 ML SYRINGE SC SCH ×2 (09:00→22:27)
[2021-07-21] MEDS: BARICITINIB 2 MG TAB PO SCH ×2 (09:00→09:41)
[2021-07-21] MEDS: Allopurinol 300 MG TAB PO SCH ×2 (09:01→09:41)
[2021-07-21] MEDS: Ascorbic Acid 500 mg Chewable Tablet PO SCH ×2 (09:01→09:41)
[2021-07-21] MEDS: NIFEdipine XL 90 MG TAB PO SCH ×2 (09:01→09:42)
[2021-07-21] MEDS: Bisoprolol Fumarate/HCTZ 5 mg/6.25 mg Tablet PO SCH ×2 (09:02→09:41)
[2021-07-21] MEDS: Dexamethasone 4 mg/ml Vial SLOW IVP SCH (09:02)
[2021-07-21] MEDS: Pantoprazole 40 MG VIAL IVP SCH (09:02)
[2021-07-21] MEDS: cloNIDine 0.1 MG TAB PO SCH ×3 (09:02→22:26)
[2021-07-21] MEDS: Lantus 1000 UNITS/10 ML VIAL SC SCH (09:03)
[2021-07-21] MEDS: Cholecalciferol (Vitamin D3) 400 UNITS TAB PO SCH ×2 (09:24→09:42)
[2021-07-21] MEDS: Dextrose 5 % And 0.9 % NaCl 1,000 ML IV SCH (09:24)
[2021-07-21] MEDS: Zinc Sulfate 220 MG CAP PO SCH (09:24)
[2021-07-21] MEDS: D5W-AA 4.25% with LYTES 1,000 ML IV SCH (19:12)
[2021-07-21] MEDS ORDERED: LACTINEX 1 TAB PO SCH (20:49)
[2021-07-21] MEDS ORDERED: Sodium Chloride 0.9% 500 ML IV SCH ×2 (21:00→21:30)
[2021-07-21] MEDS ORDERED: Sodium Chloride 0.9% 1,000 ML IV SCH (22:00)
[2021-07-21] MEDS ORDERED: Sodium Chloride 0.9% 500 ML IVPB SCH (22:15)
[2021-07-21 22:26] LABS: Hemoglobin 13.1 g/dL (14.0-18.0); Mean Corpuscular HGB CONC 31.7 g/dL (32.0-36.0); Mean Corpuscular Hemoglobin 28.5 pg (27.0-31.0); Mean Platelet Volume 10.1 fL (7.4-10.4); Platelet Count 375 thou/uL (130-400); White Blood Cell (WBC) Count 22.1 thou/uL (4.8-10.8)
[2021-07-21] MEDS: Melatonin 3 MG TAB PO SCH (22:27)
[2021-07-21 22:42] LABS: Band 17 % (5-11); Hypochromia SLIGHT = 6-15 cells (100X) (0-5/hpf); Lymphocytes 9 % (21-51); MDiff Complete? YES; Monocytes 16 % (0-10); Neutrophil 58 % (42-75); Platelet Morphology Comment Appears Adequate
[2021-07-21 22:46] LABS: ALT (SGPT) 23 U/L (8-55); AST (SGOT) 39 U/L (5-34); Albumin 2.8 g/dL (3.4-4.8); Alkaline Phosphatase 117 U/L (40-110); Anion Gap 21 mmol/L (10-20); BUN (Urea Nitrogen) 86 mg/dL (8.4-25.7); Bilirubin, Direct 0.2 mg/dL (0.1-0.3); Bilirubin, Total 0.4 mg/dL (0.2-1.2); Calc. Creatinine Clearance 27 mL/min (70-130); Calcium 8.5 mg/dL (7.8-10.44); Carbon Dioxide 19 mmol/L (23-31); Chloride 112 mmol/L (98-107); Globulin 3.8 g/dL (2.4-3.5); Glucose 241 mg/dL (80-115); Magnesium 2.6 mg/dL (1.6-2.6); Phosphorus 6.4 mg/dL (2.3-4.7); Potassium 4.4 mmol/L (3.5-5.1); Protein, Total 6.6 g/dL (5.8-8.1); Sodium 148 mmol/L (136-145)
[2021-07-22] MEDS ORDERED: Norepinephrine 8 MG/0.9% NS 250 ML IVPB SCH (00:15)
[2021-07-22] MEDS ORDERED: Acetaminophen 650 MG Suppository PR PRN (00:16)
[2021-07-22] MEDS: Norepinephrine 8 MG/0.9% NS 250 ML IVPB SCH ×3 (00:28→15:09)
[2021-07-22] MEDS ORDERED: Cefepime 1 GM in Sodium Chloride 0.9% 100 ML IVPB SCH (00:30)
[2021-07-22] MEDS ORDERED: Sodium Chloride 0.9% 1,000 ML IV SCH (00:30)
[2021-07-22] MEDS ORDERED: Vancomycin 1 GM in Premix Bag 1 BAG IVPB SCH (00:30)
[2021-07-22 01:08] LABS: Lactic Acid 2.7 mmol/L (0.5-2.2)
[2021-07-22] MEDS: Dextrose 5 % And 0.9 % NaCl 1,000 ML IV SCH (01:26)
[2021-07-22 03:38] LABS: Bacteria/HPF 1+ HPF (None Seen); Bilirubin 1+ (Negative); Blood, Urine 1+ (Negative); Clarity Turbid (Clear); Glucose, Urine (Dipstick) 50 mg/dL (Negative); Ketone, Urine Negative (Negative); Leukocyte 500 Leu/uL (Negative); Nitrite Negative (Negative); Protein, Urine (Dipstick) 50 mg/dL (Neg-Trace); RBC/HPF 21-50 HPF (0-3); Specific Gravity, Urine 1.023 (1.002-1.036); Urobilinogen Normal mg/dL (Less than 2); WBC/HPF Greater than 50 HPF (0-3); Yeast-Budding 2+ HPF (None Seen)
[2021-07-22 03:39] LABS: Urine Culture Reflex No No
[2021-07-22] MEDS ORDERED: BARICITINIB 2 MG TAB PO SCH (08:00)
[2021-07-22 08:01] LABS: Actual Bicarbonate (HCO3v) 16 mEq/L (22-28); Base Excess -8.6 mEq/L (-2.0 to +3.0); Calcium, Ionized (venous) 1.02 mmol/L (1.16-1.32); Chloride (VBG) 111 mmol/L (98-106); Hemoglobin (Hb) 16.8 g/dL (12.6-17.4); Sodium 145.5 mmol/L (133-146); pH (venous) 7.31 (7.32-7.43)
[2021-07-22] MEDS ORDERED: Enoxaparin Sodium 40 MG/0.4 ML SYRINGE SC SCH (09:00)
[2021-07-22] MEDS: Famotidine 20 MG TAB PO SCH (09:10)
[2021-07-22] MEDS: Dexamethasone 4 mg/ml Vial SLOW IVP SCH (09:10)
[2021-07-22] MEDS: BARICITINIB 1 MG TAB PO SCH (09:10)
[2021-07-22] MEDS: Cholecalciferol (Vitamin D3) 400 UNITS TAB PO SCH (09:10)
[2021-07-22] MEDS: Zinc Sulfate 220 MG CAP PO SCH (09:11)
[2021-07-22] MEDS: Allopurinol 300 MG TAB PO SCH (09:11)
[2021-07-22] MEDS: LACTINEX 1 TAB PO SCH ×3 (09:11→19:52)
[2021-07-22] MEDS: Ascorbic Acid 500 mg Chewable Tablet PO SCH (09:12)
[2021-07-22] MEDS: Bisoprolol Fumarate/HCTZ 5 mg/6.25 mg Tablet PO SCH (09:13)
[2021-07-22] MEDS: cloNIDine 0.1 MG TAB PO SCH ×2 (09:15→19:52)
[2021-07-22 09:16] LABS: Lactic Acid 2.8 mmol/L (0.5-2.2)
[2021-07-22 09:20] LABS: ALT (SGPT) 24 U/L (8-55); AST (SGOT) 24 U/L (5-34); Albumin 2.4 g/dL (3.4-4.8); Alkaline Phosphatase 117 U/L (40-110); Anion Gap 22 mmol/L (10-20); BUN (Urea Nitrogen) 92 mg/dL (8.4-25.7); Bilirubin, Total 0.4 mg/dL (0.2-1.2); Calc. Creatinine Clearance 23 mL/min (70-130); Calcium 7.6 mg/dL (7.8-10.44); Carbon Dioxide 19 mmol/L (23-31); Chloride 110 mmol/L (98-107); Glucose 321 mg/dL (80-115); Potassium 4.7 mmol/L (3.5-5.1); Protein, Total 5.4 g/dL (5.8-8.1); Sodium 146 mmol/L (136-145)
[2021-07-22 09:23] LABS: Hemoglobin 13.6 g/dL (14.0-18.0); Mean Corpuscular Hemoglobin 27.5 pg (27.0-31.0); Mean Corpuscular Volume 91.7 fL (78.0-98.0); Mean Platelet Volume 10.5 fL (7.4-10.4); Platelet Count 365 thou/uL (130-400); RBC Distribution Width 16.5 % (11.5-14.5); Red Blood Cell (RBC) Count 4.96 mill/uL (4.70-6.10); White Blood Cell (WBC) Count 22.3 thou/uL (4.8-10.8)
[2021-07-22 09:47] LABS: Band 40 % (5-11); Large Platelets SLIGHT; Lymphocytes 9 % (21-51); MDiff Complete? YES; Metamyelocyte 1 % (0-0); Monocytes 11 % (0-10); Neutrophil 39 % (42-75); Nucleated RBC 1 % (0); Platelet Morphology Comment Appears Adequate; Polychromasia SLIGHT = 2-3 cells (100X) (0-2/hpf)
[2021-07-22] MEDS: Lantus 1000 UNITS/10 ML VIAL SC SCH (09:57)
[2021-07-22] MEDS: Lactated Ringer's 1,000 ML IV SCH (10:00)
[2021-07-22] MEDS: Vancomycin HCl 25 MG/ML Oral PO SCH ×3 (11:31→23:00)
[2021-07-22] MEDS: Cefepime 1 GM in Sodium Chloride 0.9% 100 ML IVPB SCH ×2 (11:37→23:00)
[2021-07-22] MEDS: D5W-AA 4.25% with LYTES 1,000 ML IV SCH ×2 (12:12→15:20)
[2021-07-22] MEDS: HumaLOG 300 UNITS/3 ML VIAL SC PRN ×3 (12:30→20:51)
[2021-07-22 14:00] LABS: Lactic Acid 2.7 mmol/L (0.5-2.2)
[2021-07-22 14:03] LABS: Anion Gap 23 mmol/L (10-20); BUN (Urea Nitrogen) 96 mg/dL (8.4-25.7); Calc. Creatinine Clearance 27 mL/min (70-130); Calcium 7.7 mg/dL (7.8-10.44); Carbon Dioxide 17 mmol/L (23-31); Chloride 107 mmol/L (98-107); Glucose 424 mg/dL (80-115); Potassium 5.4 mmol/L (3.5-5.1); Sodium 142 mmol/L (136-145)
[2021-07-22] MEDS: Acetaminophen 325 MG TAB PO PRN (15:11)
[2021-07-22] MEDS: Melatonin 3 MG TAB PO SCH (19:53)
[2021-07-23] MEDS: Lactated Ringer's 1,000 ML IV SCH (02:12)
[2021-07-23] MEDS: Vancomycin HCl 25 MG/ML Oral PO SCH ×4 (03:41→22:43)
[2021-07-23 04:01] LABS: Vancomycin, Random 8.7 ug/mL (See Comment)
[2021-07-23 04:02] LABS: ALT (SGPT) 24 U/L (8-55); AST (SGOT) 20 U/L (5-34); Albumin 2.4 g/dL (3.4-4.8); Alkaline Phosphatase 96 U/L (40-110); Anion Gap 20 mmol/L (10-20); BUN (Urea Nitrogen) 95 mg/dL (8.4-25.7); Bilirubin, Total 0.2 mg/dL (0.2-1.2); Calc. Creatinine Clearance 40 mL/min (70-130); Calcium 8.1 mg/dL (7.8-10.44); Carbon Dioxide 17 mmol/L (23-31); Chloride 110 mmol/L (98-107); Globulin 3.8 g/dL (2.4-3.5); Glucose 372 mg/dL (80-115); Potassium 5.1 mmol/L (3.5-5.1); Protein, Total 6.2 g/dL (5.8-8.1); Sodium 142 mmol/L (136-145)
[2021-07-23] MEDS ORDERED: VANCOMYCIN 1.25 GM/250 ML BAG 1.25 GM in Premix Bag 1 BAG IVPB SCH (05:00)
[2021-07-23] MEDS: Norepinephrine 8 MG/0.9% NS 250 ML IVPB SCH (06:31)
[2021-07-23] MEDS: HumaLOG 300 UNITS/3 ML VIAL SC PRN ×3 (06:33→16:45)
[2021-07-23 07:58] LABS: Hemoglobin 13.9 g/dL (14.0-18.0); Mean Corpuscular HGB CONC 31.9 g/dL (32.0-36.0); Mean Corpuscular Hemoglobin 29.3 pg (27.0-31.0); Mean Corpuscular Volume 91.8 fL (78.0-98.0); Mean Platelet Volume 10.7 fL (7.4-10.4); Platelet Count 240 thou/uL (130-400); RBC Distribution Width 16.2 % (11.5-14.5); Red Blood Cell (RBC) Count 4.74 mill/uL (4.70-6.10); White Blood Cell (WBC) Count 23.3 thou/uL (4.8-10.8)
[2021-07-23 08:03] LABS: Band 35 % (5-11); Lymphocytes 10 % (21-51); MDiff Complete? YES; Monocytes 6 % (0-10); Myelocyte 1 % (0-0); Neutrophil 48 % (42-75); Platelet Morphology Comment Appears Adequate; Polychromasia SLIGHT = 2-3 cells (100X) (0-2/hpf)
[2021-07-23] MEDS ORDERED: Vancomycin HCl 1.25 GM in Sodium Chloride 0.9% 250 ML 250 ML IVPB SCH (09:00)
[2021-07-23] MEDS: Dexamethasone 4 mg/ml Vial SLOW IVP SCH (09:17)
[2021-07-23] MEDS: Enoxaparin Sodium 30 MG/0.3 ML SYRINGE SC SCH (09:18)
[2021-07-23] MEDS: cloNIDine 0.1 MG TAB PO SCH ×2 (09:18→22:42)
[2021-07-23] MEDS: D5W-AA 4.25% with LYTES 1,000 ML IV SCH ×2 (09:18→21:14)
[2021-07-23] MEDS: Allopurinol 300 MG TAB PO SCH (09:19)
[2021-07-23] MEDS: BARICITINIB 1 MG TAB PO SCH (09:19)
[2021-07-23] MEDS: Famotidine 20 MG TAB PO SCH (09:19)
[2021-07-23] MEDS: Cholecalciferol (Vitamin D3) 400 UNITS TAB PO SCH (09:19)
[2021-07-23] MEDS: Ascorbic Acid 500 mg Chewable Tablet PO SCH (09:19)
[2021-07-23] MEDS: LACTINEX 1 TAB PO SCH ×3 (09:19→22:41)
[2021-07-23] MEDS: Zinc Sulfate 220 MG CAP PO SCH (09:19)
[2021-07-23] MEDS: Bisoprolol Fumarate/HCTZ 5 mg/6.25 mg Tablet PO SCH (09:20)
[2021-07-23] MEDS: Lantus 1000 UNITS/10 ML VIAL SC SCH (09:21)
[2021-07-23] MEDS: Cefepime 1 GM in Sodium Chloride 0.9% 100 ML IVPB SCH (10:59)
[2021-07-23] MEDS: Melatonin 3 MG TAB PO SCH (22:42)
[2021-07-24] MEDS ORDERED: Dextrose 5% in Water 1,000 ML IV PRN (00:45)
[2021-07-24] MEDS ORDERED: Dextrose 50% Abboject 50 ML SYRINGE SLOW IVP PRN (00:45)
[2021-07-24] MEDS: HumaLOG 300 UNITS/3 ML VIAL SC SCH ×4 (00:54→18:27)
[2021-07-24] MEDS: Lactated Ringer's 1,000 ML IV SCH ×3 (04:23→23:35)
[2021-07-24] MEDS: Vancomycin HCl 25 MG/ML Oral PO SCH ×4 (04:24→22:31)
[2021-07-24 05:24] LABS: Hemoglobin 12.1 g/dL (14.0-18.0); Mean Corpuscular HGB CONC 31.2 g/dL (32.0-36.0); Mean Corpuscular Hemoglobin 28.3 pg (27.0-31.0); Mean Corpuscular Volume 90.8 fL (78.0-98.0); Mean Platelet Volume 10.2 fL (7.4-10.4); Platelet Count 242 thou/uL (130-400); RBC Distribution Width 15.9 % (11.5-14.5); Red Blood Cell (RBC) Count 4.27 mill/uL (4.70-6.10); White Blood Cell (WBC) Count 16.4 thou/uL (4.8-10.8)
[2021-07-24 05:46] LABS: Vancomycin, Random 18.2 ug/mL (See Comment)
[2021-07-24 05:48] LABS: ALT (SGPT) 17 U/L (8-55); AST (SGOT) 15 U/L (5-34); Albumin 2.3 g/dL (3.4-4.8); Alkaline Phosphatase 123 U/L (40-110); Anion Gap 15 mmol/L (10-20); BUN (Urea Nitrogen) 94 mg/dL (8.4-25.7); Bilirubin, Total Less than 0.2 mg/dL (0.2-1.2); CRP (Inflammatory) 13.88 mg/dL (= or < 0.5); Calc. Creatinine Clearance 61 mL/min (70-130); Calcium 8.1 mg/dL (7.8-10.44); Carbon Dioxide 19 mmol/L (23-31); Chloride 112 mmol/L (98-107); Globulin 2.6 g/dL (2.4-3.5); Glucose 337 mg/dL (80-115); Potassium 4.9 mmol/L (3.5-5.1); Protein, Total 4.9 g/dL (5.8-8.1); Sodium 141 mmol/L (136-145)
[2021-07-24 06:05] LABS: Band 18 % (5-11); Lymphocytes 12 % (21-51); MDiff Complete? YES; Monocytes 9 % (0-10); Neutrophil 61 % (42-75); Nucleated RBC 1 % (0)
[2021-07-24] MEDS: LACTINEX 1 TAB PO SCH ×3 (09:18→21:21)
[2021-07-24] MEDS: Zinc Sulfate 220 MG CAP PO SCH (09:19)
[2021-07-24] MEDS: Dexamethasone 4 mg/ml Vial SLOW IVP SCH (09:19)
[2021-07-24] MEDS: Cholecalciferol (Vitamin D3) 400 UNITS TAB PO SCH (09:19)
[2021-07-24] MEDS: Saccharomyces boulardii 250 MG CAP PO SCH (09:19)
[2021-07-24] MEDS: Allopurinol 300 MG TAB PO SCH (09:19)
[2021-07-24] MEDS: Ascorbic Acid 500 mg Chewable Tablet PO SCH (09:19)
[2021-07-24] MEDS: Famotidine 20 MG TAB PO SCH (09:19)
[2021-07-24] MEDS: Enoxaparin Sodium 30 MG/0.3 ML SYRINGE SC SCH (09:20)
[2021-07-24] MEDS: Lantus 1000 UNITS/10 ML VIAL SC SCH ×2 (09:24→21:23)
[2021-07-24] MEDS: cloNIDine 0.1 MG TAB PO SCH ×2 (15:00→21:22)
[2021-07-24] MEDS: Bisoprolol Fumarate/HCTZ 5 mg/6.25 mg Tablet PO SCH (15:00)
[2021-07-24] MEDS: D5W-AA 4.25% with LYTES 1,000 ML IV SCH (15:01)
[2021-07-24] MEDS: Melatonin 3 MG TAB PO SCH (21:22)
[2021-07-24] MEDS: Acetaminophen 325 MG TAB PO PRN (21:26)
[2021-07-25] MEDS: HumaLOG 300 UNITS/3 ML VIAL SC SCH ×8 (00:39→20:07)
[2021-07-25] MEDS: Vancomycin HCl 25 MG/ML Oral PO SCH ×5 (04:11→22:04)
[2021-07-25] MEDS: Saccharomyces boulardii 250 MG CAP PO SCH ×2 (09:51→10:10)
[2021-07-25] MEDS: Allopurinol 300 MG TAB PO SCH ×2 (09:51→10:10)
[2021-07-25] MEDS: Zinc Sulfate 220 MG CAP PO SCH ×2 (09:51→10:10)
[2021-07-25] MEDS: Famotidine 20 MG TAB PO SCH ×2 (09:52→10:10)
[2021-07-25] MEDS: Cholecalciferol (Vitamin D3) 400 UNITS TAB PO SCH (09:52)
[2021-07-25] MEDS: Ascorbic Acid 500 mg Chewable Tablet PO SCH ×2 (09:53→10:10)
[2021-07-25] MEDS: LACTINEX 1 TAB PO SCH ×4 (09:53→20:07)
[2021-07-25] MEDS: cloNIDine 0.1 MG TAB PO SCH ×4 (09:53→20:32)
[2021-07-25] MEDS: Enoxaparin Sodium 30 MG/0.3 ML SYRINGE SC SCH ×2 (09:55→10:10)
[2021-07-25] MEDS: Dexamethasone 4 mg/ml Vial SLOW IVP SCH (09:55)
[2021-07-25] MEDS: Lantus 1000 UNITS/10 ML VIAL SC SCH ×3 (09:57→20:08)
[2021-07-25 10:54] LABS: Base Excess (BEa) -5.7 mEq/L (-2.0 to +3.0); CO2 Tension 40.1 mmHg (35.0-45.0); Calcium, Ionized (arterial) 1.26 mmol/L (1.12-1.30); Carboxyhemoglobin (COHb) 0.8 gm% (0.0-3.0); Hemoglobin (Hb) 13.6 g/dL (14.0-18.0); Potassium - ABG Lab 4.54 mmol/L (3.70-5.30); pH, Arterial 7.32 (7.35-7.45)
[2021-07-25] MEDS: Bisoprolol Fumarate/HCTZ 5 mg/6.25 mg Tablet PO SCH (11:20)
[2021-07-25 11:26] LABS: O2 Tension (PaO2), arterial 51.2 mmHg (> 80.0); Puncture Site RRA
[2021-07-25 11:27] LABS: ALV-art Gradient 611.675 mmHg (0-20)
[2021-07-25] MEDS ORDERED: Lorazepam 2 MG/ML VIAL ONE (11:42)
[2021-07-25] MEDS ORDERED: Fentanyl CADD 100 ML ONE (11:48)
[2021-07-25 11:53] LABS: Actual Bicarbonate (HCO3a) 18.2 mEq/L (22-28); Base Excess (BEa) -7.5 mEq/L (-2.0 to +3.0); CO2 Tension 37.4 mmHg (35.0-45.0); Carboxyhemoglobin (COHb) 0.4 gm% (0.0-3.0); Hemoglobin (Hb) 13.2 g/dL (14.0-18.0); O2 Tension (PaO2), arterial 87.2 mmHg (> 80.0); Potassium - ABG Lab 4.69 mmol/L (3.70-5.30)
[2021-07-25 11:57] LABS: Puncture Site RRA
[2021-07-25] MEDS ORDERED: Morphine 2 MG/ML VIAL SLOW IVP PRN (12:00)
[2021-07-25] MEDS ORDERED: Fentanyl BOLUS 250 ML IVPB PRN (12:00)
[2021-07-25] MEDS ORDERED: Morphine 4 MG/ML VIAL SLOW IVP PRN (12:00)
[2021-07-25] MEDS ORDERED: Propofol BOLUS 1,000 MG/100 ML VIAL IV PRN (12:00)
[2021-07-25] MEDS ORDERED: DISCONTINUE PREVIOUS NARCOTIC PAIN MEDICATIONS AND BENZODIAZEPINES FS SCH (12:00)
[2021-07-25] MEDS ORDERED: PROPOFOL 200 MG/20 ML VIAL IV SCH (12:15)
[2021-07-25] MEDS ORDERED: Succinylcholine Chloride 200 MG/10 ML VIAL IV SCH (12:15)
[2021-07-25 12:45] LABS: Anion Gap 18 mmol/L (10-20); BUN (Urea Nitrogen) 89 mg/dL (8.4-25.7); Calc. Creatinine Clearance 72 mL/min (70-130); Calcium 8.4 mg/dL (7.8-10.44); Carbon Dioxide 20 mmol/L (23-31); Chloride 115 mmol/L (98-107); Glucose 223 mg/dL (80-115); Magnesium 2.5 mg/dL (1.6-2.6); Phosphorus 4.2 mg/dL (2.3-4.7); Potassium 4.9 mmol/L (3.5-5.1); Sodium 148 mmol/L (136-145)
[2021-07-25 12:56] LABS: Band 43 % (5-11); Hemoglobin 12.9 g/dL (14.0-18.0); Hypochromia SLIGHT = 6-15 cells (100X) (0-5/hpf); Lymphocytes 5 % (21-51); MDiff Complete? YES; Mean Corpuscular HGB CONC 30.9 g/dL (32.0-36.0); Mean Corpuscular Hemoglobin 28.4 pg (27.0-31.0); Mean Corpuscular Volume 92.1 fL (78.0-98.0); Mean Platelet Volume 10.5 fL (7.4-10.4); Metamyelocyte 1 % (0-0); Monocytes 7 % (0-10); Neutrophil 43 % (42-75); Platelet Count 228 thou/uL (130-400); Platelet Morphology Comment Appears Adequate; Polychromasia SLIGHT = 2-3 cells (100X) (0-2/hpf); RBC Distribution Width 16.4 % (11.5-14.5); Reactive Lymphocytes 1 % (0-10); Red Blood Cell (RBC) Count 4.54 mill/uL (4.70-6.10); White Blood Cell (WBC) Count 9.3 thou/uL (4.8-10.8)
[2021-07-25] MEDS ORDERED: Piperacillin/Tazobactam 3.375 GM in Sodium Chloride 0.9% 100 ML IVPB SCH ×2 (13:00→14:00)
[2021-07-25] MEDS ORDERED: Vecuronium 10 MG VIAL ONE (13:20)
[2021-07-25 13:34] LABS: Hemoglobin 12.2 g/dL (14.0-18.0); Mean Corpuscular HGB CONC 31.8 g/dL (32.0-36.0); Mean Corpuscular Volume 91.3 fL (78.0-98.0); Mean Platelet Volume 10.2 fL (7.4-10.4); Platelet Count 179 thou/uL (130-400); RBC Distribution Width 16.2 % (11.5-14.5); Red Blood Cell (RBC) Count 4.22 mill/uL (4.70-6.10); White Blood Cell (WBC) Count 7.5 thou/uL (4.8-10.8)
[2021-07-25 13:55] LABS: ALT (SGPT) 39 U/L (8-55); AST (SGOT) 55 U/L (5-34); Albumin 2.3 g/dL (3.4-4.8); Alkaline Phosphatase 171 U/L (40-110); Anion Gap 16 mmol/L (10-20); BUN (Urea Nitrogen) 86 mg/dL (8.4-25.7); Bilirubin, Total 0.4 mg/dL (0.2-1.2); Calc. Creatinine Clearance 70 mL/min (70-130); Calcium 8.3 mg/dL (7.8-10.44); Carbon Dioxide 20 mmol/L (23-31); Chloride 117 mmol/L (98-107); Globulin 2.6 g/dL (2.4-3.5); Glucose 208 mg/dL (80-115); Magnesium 2.5 mg/dL (1.6-2.6); Phosphorus 3.3 mg/dL (2.3-4.7); Potassium 4.8 mmol/L (3.5-5.1); Protein, Total 4.9 g/dL (5.8-8.1); Sodium 148 mmol/L (136-145)
[2021-07-25 14:03] LABS: Band 60 % (5-11); Lymphocytes 9 % (21-51); MDiff Complete? YES; Metamyelocyte 2 % (0-0); Monocytes 4 % (0-10); Myelocyte 1 % (0-0); Neutrophil 23 % (42-75); Platelet Morphology Comment Appears Adequate; Polychromasia SLIGHT = 2-3 cells (100X) (0-2/hpf); Reactive Lymphocytes 1 % (0-10)
[2021-07-25] MEDS: VANCOMYCIN 1.75 GM/350 ML BAG 1.75 GM in Premix Bag 1 BAG IVPB SCH (14:19)
[2021-07-25 14:57] LABS: BF Color Red; Body Fluid Source Bronchioalveol Lavag; Clarity Cloudy/Turbid (Clear); Tube # EDTA
[2021-07-25 14:58] LABS: BF WBC/Nonhematics Ct.-Manual 24440 /cu.mm
[2021-07-25 15:07] LABS: Cell Count Non Hematic 35 %
[2021-07-25 15:08] LABS: BF Segmented Neutrophils 65 %
[2021-07-25] MEDS ORDERED: Lactated Ringer's 1,000 ML IV SCH (16:00)
[2021-07-25] MEDS: Piperacillin/Tazobactam 3.375 GM in Sodium Chloride 0.9% 100 ML IVPB SCH (17:02)
[2021-07-25] MEDS: Melatonin 3 MG TAB PO SCH (20:07)
[2021-07-26] MEDS: HumaLOG 300 UNITS/3 ML VIAL SC SCH ×8 (00:04→23:43)
[2021-07-26] MEDS: Piperacillin/Tazobactam 3.375 GM in Sodium Chloride 0.9% 100 ML IVPB SCH ×3 (01:30→17:28)
[2021-07-26] MEDS: Propofol 1,000 MG/100 ML VIAL IV PRN ×2 (03:27→20:55)
[2021-07-26] MEDS: Vancomycin HCl 25 MG/ML Oral PO SCH ×4 (04:47→22:29)
[2021-07-26 04:52] LABS: ALT (SGPT) 35 U/L (8-55); AST (SGOT) 36 U/L (5-34); Alkaline Phosphatase 120 U/L (40-110); Anion Gap 16 mmol/L (10-20); BUN (Urea Nitrogen) 89 mg/dL (8.4-25.7); Bilirubin, Total 0.4 mg/dL (0.2-1.2); Calc. Creatinine Clearance 66 mL/min (70-130); Calcium 7.9 mg/dL (7.8-10.44); Carbon Dioxide 21 mmol/L (23-31); Chloride 117 mmol/L (98-107); Globulin 2.4 g/dL (2.4-3.5); Glucose 135 mg/dL (80-115); Magnesium 2.5 mg/dL (1.6-2.6); Phosphorus 4.8 mg/dL (2.3-4.7); Potassium 5.1 mmol/L (3.5-5.1); Protein, Total 4.4 g/dL (5.8-8.1); Sodium 149 mmol/L (136-145)
[2021-07-26 05:30] LABS: Hemoglobin 10.2 g/dL (14.0-18.0); Mean Corpuscular HGB CONC 31.7 g/dL (32.0-36.0); Mean Corpuscular Hemoglobin 29.4 pg (27.0-31.0); Mean Corpuscular Volume 92.7 fL (78.0-98.0); Mean Platelet Volume 10.5 fL (7.4-10.4); Platelet Count 147 thou/uL (130-400); RBC Distribution Width 16.2 % (11.5-14.5); Red Blood Cell (RBC) Count 3.45 mill/uL (4.70-6.10); White Blood Cell (WBC) Count 15.6 thou/uL (4.8-10.8)
[2021-07-26 05:31] LABS: Band 26 % (5-11); Lymphocytes 21 % (21-51); MDiff Complete? YES; Metamyelocyte 3 % (0-0); Monocytes 4 % (0-10); Myelocyte 1 % (0-0); Neutrophil 45 % (42-75); Nucleated RBC 1 % (0)
[2021-07-26] MEDS: Allopurinol 300 MG TAB PO SCH (07:58)
[2021-07-26] MEDS: Famotidine 20 MG TAB PO SCH (07:59)
[2021-07-26] MEDS: Zinc Sulfate 220 MG CAP PO SCH (07:59)
[2021-07-26] MEDS: Saccharomyces boulardii 250 MG CAP PO SCH (07:59)
[2021-07-26] MEDS: LACTINEX 1 TAB PO SCH ×3 (07:59→20:16)
[2021-07-26] MEDS: cloNIDine 0.1 MG TAB PO SCH ×2 (08:00→20:16)
[2021-07-26] MEDS: Dexamethasone 4 mg/ml Vial SLOW IVP SCH (08:00)
[2021-07-26] MEDS: Bisoprolol Fumarate/HCTZ 5 mg/6.25 mg Tablet PO SCH (08:00)
[2021-07-26] MEDS: Ascorbic Acid 500 mg Chewable Tablet PO SCH (08:00)
[2021-07-26] MEDS: Enoxaparin Sodium 40 MG/0.4 ML SYRINGE SC SCH (08:00)
[2021-07-26] MEDS: Lantus 1000 UNITS/10 ML VIAL SC SCH ×2 (08:03→20:20)
[2021-07-26 08:10] LABS: Actual Bicarbonate (HCO3a) 18.2 mEq/L (22-28); Base Excess (BEa) -6.4 mEq/L (-2.0 to +3.0); CO2 Tension 33.1 mmHg (35.0-45.0); Calcium, Ionized (arterial) 1.15 mmol/L (1.12-1.30); Carboxyhemoglobin (COHb) 0.2 gm% (0.0-3.0); Hemoglobin (Hb) 10.7 g/dL (14.0-18.0); O2 Tension (PaO2), arterial 68.2 mmHg (> 80.0); Potassium - ABG Lab 4.69 mmol/L (3.70-5.30); pH, Arterial 7.36 (7.35-7.45)
[2021-07-26 08:31] LABS: ALV-art Gradient 282.575 mmHg (0-20); Puncture Site RRA
[2021-07-26] MEDS: Lactated Ringer's 1,000 ML IV SCH ×2 (10:07→20:17)
[2021-07-26] MEDS ORDERED: Fentanyl CADD 100 ML ONE (13:40)
[2021-07-26] MEDS: Fentanyl CADD 100 ML IV SCH (13:45)
[2021-07-26] MEDS: VANCOMYCIN 1.75 GM/350 ML BAG 1.75 GM in Premix Bag 1 BAG IVPB SCH (14:24)
[2021-07-26] MEDS: Melatonin 3 MG TAB PO SCH (20:16)
[2021-07-26] MEDS: Lorazepam 2 MG/ML VIAL SLOW IVP PRN (23:33)
[2021-07-27] MEDS: Lorazepam 2 MG/ML VIAL SLOW IVP PRN ×2 (02:38→21:08)
[2021-07-27] MEDS: Piperacillin/Tazobactam 3.375 GM in Sodium Chloride 0.9% 100 ML IVPB SCH ×3 (02:52→17:45)
[2021-07-27] MEDS: Vancomycin HCl 25 MG/ML Oral PO SCH ×4 (03:51→22:00)
[2021-07-27] MEDS: Lactated Ringer's 1,000 ML IV SCH ×2 (04:54→14:09)
[2021-07-27 05:07] LABS: Hemoglobin 10.2 g/dL (14.0-18.0); Mean Corpuscular HGB CONC 30.5 g/dL (32.0-36.0); Mean Corpuscular Hemoglobin 28.2 pg (27.0-31.0); Mean Corpuscular Volume 92.2 fL (78.0-98.0); Mean Platelet Volume 10.7 fL (7.4-10.4); Platelet Count 154 thou/uL (130-400); RBC Distribution Width 16.5 % (11.5-14.5); Red Blood Cell (RBC) Count 3.63 mill/uL (4.70-6.10); White Blood Cell (WBC) Count 19.7 thou/uL (4.8-10.8)
[2021-07-27 05:12] LABS: ALT (SGPT) 27 U/L (8-55); AST (SGOT) 16 U/L (5-34); Albumin 2.2 g/dL (3.4-4.8); Alkaline Phosphatase 133 U/L (40-110); Anion Gap 17 mmol/L (10-20); BUN (Urea Nitrogen) 83 mg/dL (8.4-25.7); Bilirubin, Total 0.3 mg/dL (0.2-1.2); Calc. Creatinine Clearance 72 mL/min (70-130); Calcium 7.8 mg/dL (7.8-10.44); Carbon Dioxide 20 mmol/L (23-31); Chloride 113 mmol/L (98-107); Globulin 2.5 g/dL (2.4-3.5); Glucose 231 mg/dL (80-115); Magnesium 2.6 mg/dL (1.6-2.6); Phosphorus 4.5 mg/dL (2.3-4.7); Potassium 4.8 mmol/L (3.5-5.1); Protein, Total 4.7 g/dL (5.8-8.1); Sodium 145 mmol/L (136-145)
[2021-07-27 05:35] LABS: Band 26 % (5-11); Lymphocytes 6 % (21-51); MDiff Complete? YES; Metamyelocyte 2 % (0-0); Monocytes 5 % (0-10); Neutrophil 61 % (42-75)
[2021-07-27] MEDS: HumaLOG 300 UNITS/3 ML VIAL SC SCH ×3 (06:20→15:56)
[2021-07-27 07:38] LABS: ALV-art Gradient 174.175 mmHg (0-20); Base Excess (BEa) -6.4 mEq/L (-2.0 to +3.0); CO2 Tension 32.1 mmHg (35.0-45.0); Calcium, Ionized (arterial) 1.18 mmol/L (1.12-1.30); Carboxyhemoglobin (COHb) 0.2 gm% (0.0-3.0); Hemoglobin (Hb) 11.6 g/dL (14.0-18.0); O2 Tension (PaO2), arterial 70.9 mmHg (> 80.0); Potassium - ABG Lab 4.75 mmol/L (3.70-5.30); Puncture Site RRA; pH, Arterial 7.37 (7.35-7.45)
[2021-07-27] MEDS ORDERED: HumaLOG 300 UNITS/3 ML VIAL SC PRN ×2 (08:56→20:30)
[2021-07-27] MEDS: Ascorbic Acid 500 mg Chewable Tablet PO SCH (09:12)
[2021-07-27] MEDS: LACTINEX 1 TAB PO SCH ×3 (09:12→21:06)
[2021-07-27] MEDS: Dexamethasone 10 MG/ML VIAL SLOW IVP SCH (09:12)
[2021-07-27] MEDS: Famotidine 20 MG TAB PO SCH (09:12)
[2021-07-27] MEDS: Allopurinol 300 MG TAB PO SCH (09:12)
[2021-07-27] MEDS: Zinc Sulfate 220 MG CAP PO SCH (09:13)
[2021-07-27] MEDS: Saccharomyces boulardii 250 MG CAP PO SCH (09:13)
[2021-07-27] MEDS: Enoxaparin Sodium 40 MG/0.4 ML SYRINGE SC SCH (09:13)
[2021-07-27] MEDS: Lantus 1000 UNITS/10 ML VIAL SC SCH (09:14)
[2021-07-27] MEDS: cloNIDine 0.1 MG TAB PO SCH ×3 (09:36→21:06)
[2021-07-27] MEDS: Bisoprolol Fumarate/HCTZ 5 mg/6.25 mg Tablet PO SCH (09:52)
[2021-07-27] MEDS: Propofol 1,000 MG/100 ML VIAL IV PRN (11:42)
[2021-07-27] MEDS ORDERED: Fentanyl CADD 100 ML ONE (12:17)
[2021-07-27] MEDS: Fentanyl CADD 100 ML IV SCH (12:21)
[2021-07-27] MEDS ORDERED: Vecuronium 10 MG VIAL IV SCH (13:20)
[2021-07-27] MEDS ORDERED: Diltiazem 125 MG in Sodium Chloride 0.9% 100 ML IVPB SCH (15:45)
[2021-07-27] MEDS ORDERED: Lantus 1000 UNITS/10 ML VIAL SC SCH (21:00)
[2021-07-27] MEDS: Melatonin 3 MG TAB PO SCH (21:07)
[2021-07-27] MEDS: HumaLOG 300 UNITS/3 ML VIAL SC PRN (21:24)
[2021-07-28] MEDS: Lactated Ringer's 1,000 ML IV SCH ×3 (00:03→20:27)
[2021-07-28] MEDS: Piperacillin/Tazobactam 3.375 GM in Sodium Chloride 0.9% 100 ML IVPB SCH ×3 (02:23→17:52)
[2021-07-28] MEDS: Vancomycin HCl 25 MG/ML Oral PO SCH ×4 (03:54→22:16)
[2021-07-28] MEDS: HumaLOG 300 UNITS/3 ML VIAL SC PRN ×4 (05:11→20:26)
[2021-07-28] MEDS: Enoxaparin Sodium 40 MG/0.4 ML SYRINGE SC SCH (08:42)
[2021-07-28] MEDS: Saccharomyces boulardii 250 MG CAP PO SCH (08:42)
[2021-07-28] MEDS: Famotidine 20 MG TAB PO SCH (08:43)
[2021-07-28] MEDS: Ascorbic Acid 500 mg Chewable Tablet PO SCH (08:43)
[2021-07-28] MEDS: LACTINEX 1 TAB PO SCH ×3 (08:43→20:26)
[2021-07-28] MEDS: Zinc Sulfate 220 MG CAP PO SCH (08:43)
[2021-07-28] MEDS: Lantus 1000 UNITS/10 ML VIAL SC SCH ×2 (08:44→20:25)
[2021-07-28] MEDS: Bisoprolol Fumarate/HCTZ 5 mg/6.25 mg Tablet PO SCH (08:45)
[2021-07-28 08:51] LABS: Hemoglobin 10.2 g/dL (14.0-18.0); Mean Corpuscular HGB CONC 30.7 g/dL (32.0-36.0); Mean Corpuscular Volume 91.3 fL (78.0-98.0); Mean Platelet Volume 10.4 fL (7.4-10.4); Platelet Count 169 thou/uL (130-400); RBC Distribution Width 16.4 % (11.5-14.5); Red Blood Cell (RBC) Count 3.64 mill/uL (4.70-6.10); White Blood Cell (WBC) Count 22.8 thou/uL (4.8-10.8)
[2021-07-28] MEDS: Allopurinol 300 MG TAB PO SCH (08:51)
[2021-07-28] MEDS: Dexamethasone 10 MG/ML VIAL SLOW IVP SCH (08:51)
[2021-07-28] MEDS: cloNIDine 0.1 MG TAB PO SCH ×2 (08:51→20:26)
[2021-07-28 08:59] LABS: Anion Gap 18 mmol/L (10-20); BUN (Urea Nitrogen) 98 mg/dL (8.4-25.7); Calc. Creatinine Clearance 54 mL/min (70-130); Calcium 7.6 mg/dL (7.8-10.44); Carbon Dioxide 18 mmol/L (23-31); Chloride 110 mmol/L (98-107); Glucose 230 mg/dL (80-115); Potassium 4.7 mmol/L (3.5-5.1); Sodium 141 mmol/L (136-145)
[2021-07-28] MEDS ORDERED: Fentanyl CADD 100 ML ONE (09:35)
[2021-07-28] MEDS: Propofol 1,000 MG/100 ML VIAL IV PRN (09:37)
[2021-07-28] MEDS: Fentanyl CADD 100 ML IV SCH (09:38)
[2021-07-28 09:41] LABS: Band 17 % (5-11); Lymphocytes 8 % (21-51); MDiff Complete? YES; Monocytes 2 % (0-10); Neutrophil 73 % (42-75); Platelet Morphology Comment Appears Adequate; Polychromasia SLIGHT = 2-3 cells (100X) (0-2/hpf)
[2021-07-28] MEDS ORDERED: Furosemide 40 MG/4 ML VIAL IVP SCH (11:49)
[2021-07-28] MEDS: Haloperidol Lactate 5 MG/ML VIAL IM SCH ×3 (13:47→20:26)
[2021-07-28] MEDS: Albuterol Sulfate 1.25 MG/3 ML NEB NEB SCH ×3 (14:21→22:20)
[2021-07-28] MEDS: Nystatin Powder 15 GM BOT TOP PRN (16:16)
[2021-07-28] MEDS: Melatonin 3 MG TAB PO SCH (20:26)
[2021-07-28] MEDS: Lorazepam 2 MG/ML VIAL SLOW IVP PRN (22:30)
[2021-07-29] MEDS: Piperacillin/Tazobactam 3.375 GM in Sodium Chloride 0.9% 100 ML IVPB SCH (01:14)
[2021-07-29] MEDS: Haloperidol Lactate 5 MG/ML VIAL IM SCH ×6 (01:14→20:14)
[2021-07-29] MEDS: Albuterol Sulfate 1.25 MG/3 ML NEB NEB SCH ×6 (02:23→22:30)
[2021-07-29 04:33] LABS: Hemoglobin 11.7 g/dL (14.0-18.0); Mean Corpuscular HGB CONC 31.4 g/dL (32.0-36.0); Mean Corpuscular Hemoglobin 28.3 pg (27.0-31.0); Mean Corpuscular Volume 90.1 fL (78.0-98.0); Mean Platelet Volume 10.6 fL (7.4-10.4); Platelet Count 180 thou/uL (130-400); RBC Distribution Width 16.5 % (11.5-14.5); Red Blood Cell (RBC) Count 4.13 mill/uL (4.70-6.10); White Blood Cell (WBC) Count 18.5 thou/uL (4.8-10.8)
[2021-07-29 04:44] LABS: Anion Gap 19 mmol/L (10-20); BUN (Urea Nitrogen) 95 mg/dL (8.4-25.7); CRP (Inflammatory) 9.58 mg/dL (= or < 0.5); Calc. Creatinine Clearance 64 mL/min (70-130); Calcium 8.1 mg/dL (7.8-10.44); Carbon Dioxide 20 mmol/L (23-31); Chloride 112 mmol/L (98-107); Glucose 204 mg/dL (80-115); Potassium 4.6 mmol/L (3.5-5.1); Sodium 146 mmol/L (136-145)
[2021-07-29 05:03] LABS: Band 9 % (5-11); Lymphocytes 7 % (21-51); MDiff Complete? YES; Monocytes 2 % (0-10); Neutrophil 82 % (42-75)
[2021-07-29] MEDS: HumaLOG 300 UNITS/3 ML VIAL SC PRN ×3 (05:12→18:12)
[2021-07-29] MEDS: Vancomycin HCl 25 MG/ML Oral PO SCH ×4 (05:12→22:44)
[2021-07-29] MEDS ORDERED: Fentanyl CADD 100 ML ONE ×2 (05:33→22:39)
[2021-07-29] MEDS: Fentanyl CADD 100 ML IV SCH ×2 (05:34→22:44)
[2021-07-29] MEDS: Lorazepam 2 MG/ML VIAL SLOW IVP PRN (05:41)
[2021-07-29] MEDS: Lactated Ringer's 1,000 ML IV SCH (08:52)
[2021-07-29] MEDS ORDERED: MEROPENEM 1 GM/50 ML 1 GM in Premix Bag 1 BAG IVPB SCH (09:15)
[2021-07-29] MEDS: Fluconazole In NaCl,Iso-Osm 100 MG in Admixture Fee 2 EACH IVPB SCH (10:34)
[2021-07-29] MEDS: LACTINEX 1 TAB PO SCH ×3 (10:35→20:14)
[2021-07-29] MEDS: Ascorbic Acid 500 mg Chewable Tablet PO SCH (10:35)
[2021-07-29] MEDS: Allopurinol 300 MG TAB PO SCH (10:35)
[2021-07-29] MEDS: Bisoprolol Fumarate/HCTZ 5 mg/6.25 mg Tablet PO SCH (10:36)
[2021-07-29] MEDS: Famotidine 20 MG TAB PO SCH (10:36)
[2021-07-29] MEDS: Dexamethasone 10 MG/ML VIAL SLOW IVP SCH (10:36)
[2021-07-29] MEDS: Enoxaparin Sodium 40 MG/0.4 ML SYRINGE SC SCH (10:36)
[2021-07-29] MEDS: Lantus 1000 UNITS/10 ML VIAL SC SCH ×2 (10:38→20:15)
[2021-07-29] MEDS: Saccharomyces boulardii 250 MG CAP PO SCH (10:39)
[2021-07-29] MEDS: Zinc Sulfate 220 MG CAP PO SCH (10:39)
[2021-07-29] MEDS: cloNIDine 0.1 MG TAB PO SCH (11:06)
[2021-07-29] MEDS ORDERED: Meropenem 2 GM in Admixture Fee 1 EACH IVPB SCH (14:00)
[2021-07-29] MEDS: MEROPENEM 1 GM/50 ML 1 GM in Premix Bag 1 BAG IVPB SCH (18:07)
[2021-07-29] MEDS: Melatonin 3 MG TAB PO SCH (20:15)
[2021-07-30] MEDS: Haloperidol Lactate 5 MG/ML VIAL IM SCH ×6 (00:26→20:52)
[2021-07-30] MEDS: HumaLOG 300 UNITS/3 ML VIAL SC PRN ×5 (00:43→21:14)
[2021-07-30] MEDS: Albuterol Sulfate 1.25 MG/3 ML NEB NEB SCH ×4 (01:34→14:39)
[2021-07-30] MEDS: Vancomycin HCl 25 MG/ML Oral PO SCH ×3 (04:13→15:46)
[2021-07-30 05:16] LABS: Anion Gap 17 mmol/L (10-20); BUN (Urea Nitrogen) 92 mg/dL (8.4-25.7); CRP (Inflammatory) 12.76 mg/dL (= or < 0.5); Calc. Creatinine Clearance 77 mL/min (70-130); Calcium 7.6 mg/dL (7.8-10.44); Carbon Dioxide 21 mmol/L (23-31); Chloride 112 mmol/L (98-107); Glucose 197 mg/dL (80-115); Potassium 4.4 mmol/L (3.5-5.1); Sodium 146 mmol/L (136-145)
[2021-07-30] MEDS: MEROPENEM 1 GM/50 ML 1 GM in Premix Bag 1 BAG IVPB SCH ×3 (05:43→20:53)
[2021-07-30 05:59] LABS: Anisocytosis SLIGHT = 6-15 cells (100X) (0-5/hpf); Band 11 % (5-11); Hemoglobin 11.8 g/dL (14.0-18.0); Lymphocytes 7 % (21-51); MDiff Complete? YES; Mean Corpuscular HGB CONC 32.4 g/dL (32.0-36.0); Mean Corpuscular Hemoglobin 29.2 pg (27.0-31.0); Mean Corpuscular Volume 90.2 fL (78.0-98.0); Mean Platelet Volume 10.6 fL (7.4-10.4); Metamyelocyte 2 % (0-0); Monocytes 2 % (0-10); Myelocyte 1 % (0-0); Neutrophil 77 % (42-75); Platelet Count 180 thou/uL (130-400); Platelet Morphology Comment Appears Adequate; Polychromasia SLIGHT = 2-3 cells (100X) (0-2/hpf); RBC Distribution Width 16.7 % (11.5-14.5); Red Blood Cell (RBC) Count 4.03 mill/uL (4.70-6.10); Schistocytes SLIGHT = 2-5 cells (100X) (0-1/hpf); Spherocytes SLIGHT = 1-5 cells (100X) (None Seen); White Blood Cell (WBC) Count 14.5 thou/uL (4.8-10.8)
[2021-07-30] MEDS: Fluconazole In NaCl,Iso-Osm 100 MG in Admixture Fee 2 EACH IVPB SCH (08:57)
[2021-07-30] MEDS: LACTINEX 1 TAB PO SCH ×3 (08:57→20:53)
[2021-07-30] MEDS: Allopurinol 300 MG TAB PO SCH (08:57)
[2021-07-30] MEDS: Bisoprolol Fumarate/HCTZ 5 mg/6.25 mg Tablet PO SCH (08:59)
[2021-07-30] MEDS: Ascorbic Acid 500 mg Chewable Tablet PO SCH (08:59)
[2021-07-30] MEDS: Saccharomyces boulardii 250 MG CAP PO SCH (09:00)
[2021-07-30] MEDS: Famotidine 20 MG TAB PO SCH (09:00)
[2021-07-30] MEDS: Enoxaparin Sodium 40 MG/0.4 ML SYRINGE SC SCH (09:00)
[2021-07-30] MEDS: Dexamethasone 10 MG/ML VIAL SLOW IVP SCH (09:00)
[2021-07-30] MEDS: Zinc Sulfate 220 MG CAP PO SCH (09:00)
[2021-07-30] MEDS: Lantus 1000 UNITS/10 ML VIAL SC SCH ×2 (09:04→20:54)
[2021-07-30] MEDS: Lactated Ringer's 1,000 ML IV SCH (09:54)
[2021-07-30] MEDS: Melatonin 3 MG TAB PO SCH (20:53)
[2021-07-31] MEDS: Haloperidol Lactate 5 MG/ML VIAL IM SCH ×6 (00:15→20:37)
[2021-07-31] MEDS: Vancomycin HCl 25 MG/ML Oral PO SCH ×5 (02:48→23:03)
[2021-07-31] MEDS ORDERED: Fentanyl CADD 100 ML ONE (03:13)
[2021-07-31 05:03] LABS: Anion Gap 15 mmol/L (10-20); BUN (Urea Nitrogen) 92 mg/dL (8.4-25.7); CRP (Inflammatory) 8.83 mg/dL (= or < 0.5); Calc. Creatinine Clearance 88 mL/min (70-130); Calcium 7.8 mg/dL (7.8-10.44); Carbon Dioxide 22 mmol/L (23-31); Chloride 112 mmol/L (98-107); Glucose 216 mg/dL (80-115); Potassium 4.8 mmol/L (3.5-5.1); Sodium 144 mmol/L (136-145)
[2021-07-31 05:10] LABS: Band 34 % (5-11); Hemoglobin 10.3 g/dL (14.0-18.0); Lymphocytes 10 % (21-51); MDiff Complete? YES; Mean Corpuscular Hemoglobin 28.5 pg (27.0-31.0); Mean Corpuscular Volume 91.8 fL (78.0-98.0); Mean Platelet Volume 10.7 fL (7.4-10.4); Monocytes 4 % (0-10); Myelocyte 1 % (0-0); Neutrophil 51 % (42-75); Nucleated RBC 1 % (0); Platelet Count 180 thou/uL (130-400); Platelet Morphology Comment Appears Adequate; RBC Distribution Width 16.6 % (11.5-14.5); Red Blood Cell (RBC) Count 3.62 mill/uL (4.70-6.10); White Blood Cell (WBC) Count 10.8 thou/uL (4.8-10.8)
[2021-07-31] MEDS: MEROPENEM 1 GM/50 ML 1 GM in Premix Bag 1 BAG IVPB SCH ×3 (06:00→20:37)
[2021-07-31] MEDS: HumaLOG 300 UNITS/3 ML VIAL SC PRN ×2 (06:39→16:17)
[2021-07-31 07:51] LABS: Actual Bicarbonate (HCO3a) 21.3 mEq/L (22-28); Base Excess (BEa) -4.3 mEq/L (-2.0 to +3.0); CO2 Tension 41.4 mmHg (35.0-45.0); Calcium, Ionized (arterial) 1.19 mmol/L (1.12-1.30); Carboxyhemoglobin (COHb) 0.1 gm% (0.0-3.0); Hemoglobin (Hb) 12.1 g/dL (14.0-18.0); O2 Tension (PaO2), arterial 81.9 mmHg (> 80.0); Potassium - ABG Lab 4.55 mmol/L (3.70-5.30); pH, Arterial 7.33 (7.35-7.45)
[2021-07-31 07:58] LABS: Puncture Site RRA
[2021-07-31] MEDS: Fluconazole In NaCl,Iso-Osm 100 MG in Admixture Fee 2 EACH IVPB SCH (08:57)
[2021-07-31] MEDS: Zinc Sulfate 220 MG CAP PO SCH (08:59)
[2021-07-31] MEDS: Ascorbic Acid 500 mg Chewable Tablet PO SCH (08:59)
[2021-07-31] MEDS: LACTINEX 1 TAB PO SCH ×3 (08:59→20:35)
[2021-07-31] MEDS: Dexamethasone 10 MG/ML VIAL SLOW IVP SCH (08:59)
[2021-07-31] MEDS: Bisoprolol Fumarate/HCTZ 5 mg/6.25 mg Tablet PO SCH (08:59)
[2021-07-31] MEDS: Allopurinol 300 MG TAB PO SCH (08:59)
[2021-07-31] MEDS: Enoxaparin Sodium 40 MG/0.4 ML SYRINGE SC SCH (08:59)
[2021-07-31] MEDS: Famotidine 20 MG TAB PO SCH (08:59)
[2021-07-31] MEDS: Saccharomyces boulardii 250 MG CAP PO SCH (08:59)
[2021-07-31] MEDS: Lactated Ringer's 1,000 ML IV SCH (09:00)
[2021-07-31] MEDS: Lantus 1000 UNITS/10 ML VIAL SC SCH ×2 (09:03→20:36)
[2021-07-31] MEDS ORDERED: Amlodipine 5 MG TAB PO SCH (12:30)
[2021-07-31] MEDS ORDERED: cloNIDine 0.1 MG TAB PO SCH (12:30)
[2021-07-31] MEDS: Nystatin Powder 15 GM BOT TOP PRN (16:00)
[2021-07-31] MEDS: cloNIDine 0.1 MG TAB PO SCH (20:35)
[2021-07-31] MEDS: Melatonin 3 MG TAB PO SCH (20:36)
[2021-08-01] MEDS: Haloperidol Lactate 5 MG/ML VIAL IM SCH ×6 (00:08→20:18)
[2021-08-01] MEDS: HumaLOG 300 UNITS/3 ML VIAL SC PRN ×3 (00:32→23:00)
[2021-08-01] MEDS: Acetaminophen 325 MG TAB PO PRN ×4 (00:35→20:17)
[2021-08-01] MEDS: MEROPENEM 1 GM/50 ML 1 GM in Premix Bag 1 BAG IVPB SCH ×4 (05:03→20:17)
[2021-08-01] MEDS: Vancomycin HCl 25 MG/ML Oral PO SCH ×4 (05:03→22:58)
[2021-08-01 05:48] LABS: Anion Gap 15 mmol/L (10-20); BUN (Urea Nitrogen) 90 mg/dL (8.4-25.7); Calc. Creatinine Clearance 111 mL/min (70-130); Calcium 8.4 mg/dL (7.8-10.44); Carbon Dioxide 23 mmol/L (23-31); Chloride 112 mmol/L (98-107); Glucose 156 mg/dL (80-115); Potassium 5.4 mmol/L (3.5-5.1); Sodium 145 mmol/L (136-145)
[2021-08-01 05:54] LABS: Hemoglobin 11.5 g/dL (14.0-18.0); Mean Corpuscular HGB CONC 30.1 g/dL (32.0-36.0); Mean Corpuscular Hemoglobin 27.4 pg (27.0-31.0); Mean Platelet Volume 10.5 fL (7.4-10.4); Platelet Count 243 thou/uL (130-400); Red Blood Cell (RBC) Count 4.21 mill/uL (4.70-6.10); White Blood Cell (WBC) Count 20.3 thou/uL (4.8-10.8)
[2021-08-01 06:01] LABS: Band 24 % (5-11); Hypochromia SLIGHT = 6-15 cells (100X) (0-5/hpf); Lymphocytes 10 % (21-51); MDiff Complete? YES; Metamyelocyte 4 % (0-0); Monocytes 3 % (0-10); Neutrophil 57 % (42-75); Platelet Morphology Comment Appears Adequate; Polychromasia SLIGHT = 2-3 cells (100X) (0-2/hpf); Reactive Lymphocytes 2 % (0-10)
[2021-08-01] MEDS: Dextrose 5 %-0.45 % NaCl 1,000 ML IV SCH ×2 (09:20→22:58)
[2021-08-01] MEDS: Allopurinol 300 MG TAB PO SCH (09:21)
[2021-08-01] MEDS: Enoxaparin Sodium 40 MG/0.4 ML SYRINGE SC SCH (09:21)
[2021-08-01] MEDS: Saccharomyces boulardii 250 MG CAP PO SCH (09:21)
[2021-08-01] MEDS: Amlodipine 5 MG TAB PO SCH (09:22)
[2021-08-01] MEDS: Ascorbic Acid 500 mg Chewable Tablet PO SCH (09:22)
[2021-08-01] MEDS: Bisoprolol Fumarate/HCTZ 5 mg/6.25 mg Tablet PO SCH (09:22)
[2021-08-01] MEDS: LACTINEX 1 TAB PO SCH ×3 (09:22→20:17)
[2021-08-01] MEDS: Famotidine 20 MG TAB PO SCH (09:24)
[2021-08-01] MEDS: Zinc Sulfate 220 MG CAP PO SCH (09:24)
[2021-08-01] MEDS: cloNIDine 0.1 MG TAB PO SCH ×2 (09:24→20:18)
[2021-08-01] MEDS: Dexamethasone 10 MG/ML VIAL SLOW IVP SCH (09:25)
[2021-08-01] MEDS: Fluconazole In NaCl,Iso-Osm 100 MG in Admixture Fee 2 EACH IVPB SCH (09:26)
[2021-08-01] MEDS: Lantus 1000 UNITS/10 ML VIAL SC SCH ×2 (09:27→09:28)
[2021-08-01] MEDS: Albumin 25% 25 GM/100 ML BOT IVPB SCH ×2 (16:56→22:58)
[2021-08-01] MEDS: Melatonin 3 MG TAB PO SCH (20:18)
[2021-08-01] MEDS ORDERED: guaiFENesin/DM ER PO SCH (22:45)
[2021-08-02 04:22] LABS: Band 18 % (5-11); Hemoglobin 9.7 g/dL (14.0-18.0); Hypochromia SLIGHT = 6-15 cells (100X) (0-5/hpf); Lymphocytes 9 % (21-51); MDiff Complete? YES; Mean Corpuscular HGB CONC 31.5 g/dL (32.0-36.0); Mean Corpuscular Hemoglobin 28.7 pg (27.0-31.0); Mean Corpuscular Volume 91.2 fL (78.0-98.0); Mean Platelet Volume 10.2 fL (7.4-10.4); Neutrophil 73 % (42-75); Platelet Count 199 thou/uL (130-400); Platelet Morphology Comment Appears Adequate; Red Blood Cell (RBC) Count 3.39 mill/uL (4.70-6.10); White Blood Cell (WBC) Count 21.9 thou/uL (4.8-10.8)
[2021-08-02 04:26] LABS: Anion Gap 17 mmol/L (10-20); BUN (Urea Nitrogen) 84 mg/dL (8.4-25.7); Calc. Creatinine Clearance 107 mL/min (70-130); Calcium 8.1 mg/dL (7.8-10.44); Carbon Dioxide 22 mmol/L (23-31); Chloride 113 mmol/L (98-107); Glucose 191 mg/dL (80-115); Potassium 4.6 mmol/L (3.5-5.1); Sodium 147 mmol/L (136-145)
[2021-08-02] MEDS: HumaLOG 300 UNITS/3 ML VIAL SC PRN (05:56)
[2021-08-02] MEDS: Albumin 25% 25 GM/100 ML BOT IVPB SCH ×2 (05:56→12:17)
[2021-08-02] MEDS: Haloperidol Lactate 5 MG/ML VIAL IM SCH ×6 (05:57→21:00)
[2021-08-02] MEDS: Vancomycin HCl 25 MG/ML Oral PO SCH ×3 (05:57→16:38)
[2021-08-02] MEDS: MEROPENEM 1 GM/50 ML 1 GM in Premix Bag 1 BAG IVPB SCH ×3 (05:57→21:17)
[2021-08-02] MEDS: Enoxaparin Sodium 40 MG/0.4 ML SYRINGE SC SCH (07:18)
[2021-08-02] MEDS: Amlodipine 5 MG TAB PO SCH (07:18)
[2021-08-02] MEDS: Ascorbic Acid 500 mg Chewable Tablet PO SCH (07:19)
[2021-08-02] MEDS: Famotidine 20 MG TAB PO SCH ×2 (07:20→21:54)
[2021-08-02] MEDS: LACTINEX 1 TAB PO SCH ×3 (07:20→21:54)
[2021-08-02] MEDS: guaiFENesin/DM ER PO SCH ×2 (07:20→21:52)
[2021-08-02] MEDS: Zinc Sulfate 220 MG CAP PO SCH (07:20)
[2021-08-02] MEDS: cloNIDine 0.1 MG TAB PO SCH ×2 (07:20→22:18)
[2021-08-02] MEDS: Allopurinol 300 MG TAB PO SCH (07:21)
[2021-08-02] MEDS: Lantus 1000 UNITS/10 ML VIAL SC SCH (07:21)
[2021-08-02] MEDS: Saccharomyces boulardii 250 MG CAP PO SCH (07:21)
[2021-08-02] MEDS: Bisoprolol Fumarate 5 MG TAB PO SCH (07:55)
[2021-08-02] MEDS: Acetaminophen 325 MG TAB PO PRN (07:55)
[2021-08-02] MEDS: Dextrose 5 %-0.45 % NaCl 1,000 ML IV SCH (10:33)
[2021-08-02 12:35] VITALS: BMI 42.5
[2021-08-02] MEDS: Morphine 4 MG/ML VIAL SLOW IVP PRN ×2 (12:57→22:42)
[2021-08-02] MEDS: Melatonin 3 MG TAB PO SCH (21:54)
[2021-08-03] MEDS: Lantus 1000 UNITS/10 ML VIAL SC SCH ×2 (00:15→08:50)
[2021-08-03] MEDS: Vancomycin HCl 25 MG/ML Oral PO SCH ×3 (00:17→11:41)
[2021-08-03] MEDS: MEROPENEM 1 GM/50 ML 1 GM in Premix Bag 1 BAG IVPB SCH (05:12)
[2021-08-03] MEDS: Haloperidol Lactate 5 MG/ML VIAL IM SCH (05:46)
[2021-08-03] MEDS: Dextrose 5 %-0.45 % NaCl 1,000 ML IV SCH (05:47)
[2021-08-03 07:58] LABS: Mean Corpuscular HGB CONC 31.7 g/dL (32.0-36.0); Mean Corpuscular Hemoglobin 29.1 pg (27.0-31.0); Mean Corpuscular Volume 91.6 fL (78.0-98.0); Mean Platelet Volume 9.9 fL (7.4-10.4); Platelet Count 235 thou/uL (130-400); RBC Distribution Width 17.2 % (11.5-14.5); Red Blood Cell (RBC) Count 3.79 mill/uL (4.70-6.10); White Blood Cell (WBC) Count 21.4 thou/uL (4.8-10.8)
[2021-08-03 08:16] LABS: Anion Gap 17 mmol/L (10-20); BUN (Urea Nitrogen) 66 mg/dL (8.4-25.7); Calc. Creatinine Clearance 125 mL/min (70-130); Calcium 8.2 mg/dL (7.8-10.44); Carbon Dioxide 24 mmol/L (23-31); Chloride 114 mmol/L (98-107); Glucose 169 mg/dL (80-115); Potassium 4.9 mmol/L (3.5-5.1); Sodium 150 mmol/L (136-145)
[2021-08-03 08:29] LABS: Band 10 % (5-11); Lymphocytes 5 % (21-51); MDiff Complete? YES; Monocytes 3 % (0-10); Neutrophil 82 % (42-75); RBC Morphology Normal
[2021-08-03] MEDS: Amlodipine 5 MG TAB PO SCH (08:48)
[2021-08-03] MEDS: Ascorbic Acid 500 mg Chewable Tablet PO SCH (08:48)
[2021-08-03] MEDS: Saccharomyces boulardii 250 MG CAP PO SCH (08:48)
[2021-08-03] MEDS: Zinc Sulfate 220 MG CAP PO SCH (08:48)
[2021-08-03] MEDS: Enoxaparin Sodium 40 MG/0.4 ML SYRINGE SC SCH (08:48)
[2021-08-03] MEDS: Famotidine 20 MG TAB PO SCH (08:48)
[2021-08-03] MEDS: LACTINEX 1 TAB PO SCH (08:48)
[2021-08-03] MEDS: Bisoprolol Fumarate 5 MG TAB PO SCH (08:49)
[2021-08-03] MEDS: Allopurinol 300 MG TAB PO SCH (08:57)
[2021-08-03] MEDS: guaiFENesin/DM ER PO SCH (08:58)
[2021-08-03 11:13] VITALS: BP 100/67
[2021-08-03] MEDS: cloNIDine 0.1 MG TAB PO SCH (11:13)
[2021-08-03] MEDS: HumaLOG 300 UNITS/3 ML VIAL SC PRN (11:41)
[2021-08-03 12:55] VITALS: TEMP 99.2
== END 2021-08-03 13:40 | disposition expired | DRG 870 ==
LOC: 2SE 20:56 → OBSVTOIN 07-09 00:22 → IMCU/EMU 07-21 21:28 → CCU 07-22 00:37 → 2SW 07-23 18:39 → T4-B 07-24 21:05 → CCU 07-25 11:19
PROVIDERS: ADMIT Internal Medicine; ATTEND Internal Medicine
PROC: 8E0ZXY6 Isolation (ICD-10-PCS; 2021-07-09)
PROC: 3E0333Z Introduction of Anti-inflammatory into Peripheral Vein, Percutaneous Approach (ICD-10-PCS; 2021-07-09)
PROC: XW033E5 Introduction of Remdesivir Anti-infective into Peripheral Vein, Percutaneous Approach, New Technology Group 5 (ICD-10-PCS; 2021-07-09)
PROC: XW0DXM6 Introduction of Baricitinib into Mouth and Pharynx, External Approach, New Technology Group 6 (ICD-10-PCS; 2021-07-10)
PROC: 0T2BX0Z Change Drainage Device in Bladder, External Approach (ICD-10-PCS; 2021-07-11)
PROC: 02HV33Z Insertion of Infusion Device into Superior Vena Cava, Percutaneous Approach (ICD-10-PCS; 2021-07-14)
PROC: B548ZZA Ultrasonography of Superior Vena Cava, Guidance (ICD-10-PCS; 2021-07-14)
PROC: 3E033XZ Introduction of Vasopressor into Peripheral Vein, Percutaneous Approach (ICD-10-PCS; 2021-07-22)
PROC: 06HY33Z Insertion of Infusion Device into Lower Vein, Percutaneous Approach (ICD-10-PCS; 2021-07-22)
PROC: 5A1955Z Respiratory Ventilation, Greater than 96 Consecutive Hours (ICD-10-PCS; principal; 2021-07-25)
PROC: 0BH17EZ Insertion of Endotracheal Airway into Trachea, Via Natural or Artificial Opening (ICD-10-PCS; 2021-07-25)
PROC: 0D9670Z Drainage of Stomach with Drainage Device, Via Natural or Artificial Opening (ICD-10-PCS; 2021-07-25)
PROC: 0B9F8ZX Drainage of Right Lower Lung Lobe, Via Natural or Artificial Opening Endoscopic, Diagnostic (ICD-10-PCS; 2021-07-25)
PROC: 0B9D8ZX Drainage of Right Middle Lung Lobe, Via Natural or Artificial Opening Endoscopic, Diagnostic (ICD-10-PCS; 2021-07-25)
PROC: 0B928ZZ Drainage of Carina, Via Natural or Artificial Opening Endoscopic (ICD-10-PCS; 2021-07-25)
PROC: 0B9H8ZX Drainage of Lung Lingula, Via Natural or Artificial Opening Endoscopic, Diagnostic (ICD-10-PCS; 2021-07-25)
DX: A41.4 Sepsis due to anaerobes (principal); U07.1 COVID-19; J12.82 Pneumonia due to coronavirus disease 2019; J96.01 Acute respiratory failure with hypoxia; R65.21 Severe sepsis with septic shock; G93.41 Metabolic encephalopathy; J69.0 Pneumonitis due to inhalation of food and vomit; N17.9 Acute kidney failure, unspecified; E46 Unspecified protein-calorie malnutrition; Z68.41 Body mass index [BMI] 40.0-44.9, adult; E87.0 Hyperosmolality and hypernatremia; E87.1 Hypo-osmolality and hyponatremia; A04.72 Enterocolitis due to Clostridium difficile, not specified as recurrent; Z66 Do not resuscitate; F79 Unspecified intellectual disabilities; E78.5 Hyperlipidemia, unspecified; E66.01 Morbid (severe) obesity due to excess calories; E11.65 Type 2 diabetes mellitus with hyperglycemia; I15.2 Hypertension secondary to endocrine disorders; M10.9 Gout, unspecified; N40.0 Benign prostatic hyperplasia without lower urinary tract symptoms; R77.8 Other specified abnormalities of plasma proteins; R33.9 Retention of urine, unspecified; I44.1 Atrioventricular block, second degree; R00.1 Bradycardia, unspecified; D64.9 Anemia, unspecified; B96.20 Unspecified Escherichia coli [E. coli] as the cause of diseases classified elsewhere; E87.5 Hyperkalemia; Z79.84 Long term (current) use of oral hypoglycemic drugs; Z79.899 Other long term (current) drug therapy; Z79.82 Long term (current) use of aspirin; Z79.4 Long term (current) use of insulin; Z87.898 Personal history of other specified conditions; Z78.1 Physical restraint status; F17.220 Nicotine dependence, chewing tobacco, uncomplicated; E86.0 Dehydration
CPT/HCPCS: 36415; 36416; 36569; 36600; 71045; 74018; 76770; 80048; 80053; 80061; 80076; 80202; 81001; 82248; 82728; 82805; 83036; 83605; 83735; 84100; 84145; 84443; 84484; 85025; 85060; 86140; 87040; 87070; 87077; 87102; 87116; 87186; 87206; 87324; 87449; 89051; 93005; 93010; 94002; 94003; 94640; C1751; C9113; J0360; J0456; J0692; J0696; J1100; J1450; J1630; J1644; J1650; J1815; J1940; J2060; J2185; J2270; J2543; J2704; J3010; J3370; J3490; J7030; J7042; J7050; J7070; J7120; J7620; P9047; U0002